=== PATIENT | female | born 1990 | race Caucasian/White ===

== ENCOUNTER 2017-06-12 01:03 | Emergency (ER) | payer SELFPAY ==
--- NOTE | 2017-06-12 01:20 | EDM.PDOC ---
ED HPI GENERAL MEDICAL PROBLEM - General Stated Complaint: FEVER Time Seen by Provider: 06/12/17 01:12 - History of Present Illness INITIAL COMMENTS - FREE TEXT/NARRATIVE: HISTORY AND PHYSICAL: History of present illness: Patient's a 26-year-old female presents with a concern of fever and sore throat has been no vomiting diarrhea or other complaints Review of systems: As per history of present illness and below otherwise all systems reviewed and negative. Past medical history: As per history of present illness and as reviewed below otherwise noncontributory. Surgical history: As per history of present illness and as reviewed below otherwise noncontributory. Social history: No reported history of drug or alcohol abuse. Family history: As per history of present illness and as reviewed below otherwise noncontributory. Physical exam: HEENT: Atraumatic, normocephalic, pupils reactive, negative for conjunctival pallor or scleral icterus, mucous membranes moist, throat 2+ tonsils and pustular exudates no peritonsillar fullness uvular deviation potato voice or trismus, neck supple, nontender, trachea midline. Lungs: Clear to auscultation, breath sounds equal bilaterally, chest nontender. Heart: S1S2, regular, negative for clicks, rubs, or JVD. Abdomen: Soft, nondistended, nontender. Negative for masses or hepatosplenomegaly. Negative for costovertebral tenderness. Pelvis: Stable nontender. Genitourinary: Deferred. Rectal: Deferred. Extremities: Atraumatic, negative for cords or calf pain. Neurovascular unremarkable. Neuro: Awake, alert, oriented. Cranial nerves II through XII unremarkable. Cerebellum unremarkable. Motor and sensory unremarkable throughout. Exam nonfocal. Diagnostics: Deferred Therapeutics: Motrin 400 mg by mouth Impression: 1 exudative pharyngitis Definitive disposition and diagnosis as appropriate pending reevaluation and review of above. - Related Data Allergies Allergy/AdvReac Type Severity Reaction Status Date / Time cephalexin monohydrate Allergy Intermediate throat Verified 02/08/14 19:44 [From Keflex] swelling Home Meds: Home Meds Pnv62/Fa/Om3/DHA/EPA/Fish Oil [[facility] Gummy Vitamins] 2 DAILY 10/04/13 [ History] Amoxicillin 500 mg PO BID #20 capsule 07/29/16 [Rx] Past Medical History - Past Health History Medical/Surgical History: Denies Medical/Surgical History Social & Family History - Tobacco Use Smoking Status *Q: Current Some Day Smoker Years of Tobacco use: 3 Packs/Tins Daily: 0.1 Second Hand Smoke Exposure: No - Alcohol Use Days Per Week of Alcohol Use: 0 - Recreational Drug Use Recreational Drug Use: No ED ROS GENERAL - Review of Systems Review Of Systems: ROS reveals no pertinent complaints other than HPI. ED EXAM, GENERAL - Physical Exam Exam: See Below (See dictation) Departure - Departure Time of Disposition: :19 Disposition: Home, Self-Care 01 Condition: Good Clinical Impression: Exudative pharyngitis - Discharge Information Referrals: Franco Wilson MD [Primary Care Provider] - Additional Instructions: The following information is given to patients seen in the emergency department who are being discharged to home. This information is to outline your options for follow-up care. We provide all patients seen in our emergency department with a follow-up referral. The need for follow-up, as well as the timing and circumstances, are variable depending upon the specifics of your emergency department visit. If you don't have a primary care physician on staff, we will provide you with a referral. We always advise you to contact your personal physician following an emergency department visit to inform them of the circumstance of the visit and for follow-up with them and/or the need for any referrals to a consulting specialist. The emergency department will also refer you to a specialist when appropriate. This referral assures that you have the opportunity for followup care with a specialist. All of these measure are taken in an effort to provide you with optimal care, which includes your followup. Under all circumstances we always encourage you to contact your private physician who remains a resource for coordinating your care. When calling for followup care, please make the office aware that this follow-up is from your recent emergency room visit. If for any reason you are refused follow-up, please contact the [facility] emergency department at and asked to speak to the emergency department charge nurse. Augmentin is prescribed Motrin/Tylenol as directed follow-up primary medical doctor 1-2 days return as needed as discussed]
[2017-06-12] MEDS ORDERED: Ibuprofen 400 MG Tab PO ONE (02:15)
[2017-06-12 02:37] VITALS: BP 109/69
== END 2017-06-12 02:30 | disposition home or self-care (01) ==
LOC: MW.ED 01:03
DX: J02.9 Acute pharyngitis, unspecified (principal); F17.210 Nicotine dependence, cigarettes, uncomplicated; Z88.1 Allergy status to other antibiotic agents
CPT/HCPCS: 99283; A9270; 99282

== ENCOUNTER 2017-09-22 19:46 | Emergency (ER) | payer MEDICAID ==
--- NOTE | 2017-09-22 20:05 | EDM.PDOC ---
ED HPI GENERAL MEDICAL PROBLEM - General Chief Complaint: Respiratory Problem Stated Complaint: COUGH/CONGESTION Time Seen by Provider: 09/22/17 19:52 - History of Present Illness INITIAL COMMENTS - FREE TEXT/NARRATIVE: HISTORY AND PHYSICAL: History of present illness: The patient is a healthy 26-year-old female who is a history of tobacco use but has not smoked for the last week and presents with a hacking cough nonproductive of phlegm for the last 1-1/2 weeks body aches malaise but no fevers runny nose abdominal pain or vomiting. 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 The patient did not get her flu shot this year Review of systems: As per history of present illness and below otherwise all systems reviewed and negative. Past medical history: As per history of present illness and as reviewed below otherwise noncontributory. Surgical history: As per history of present illness and as reviewed below otherwise noncontributory. Social history: No reported history of drug or alcohol abuse. Family history: As per history of present illness and as reviewed below otherwise noncontributory. Physical exam: General: Well-developed well-nourished female who speaks clearly in the ED without hoarse or muffled voice and is not breathless. Vital signs have been reviewed by me HEENT: Atraumatic, normocephalic, pupils reactive, negative for conjunctival pallor or scleral icterus, mucous membranes moist, throat clear, neck supple, nontender, trachea midline. Lungs: Clear to auscultation, breath sounds equal bilaterally, chest nontender. No work of breathing wheezing or stridor Heart: S1S2, regular, rate and rhythm no overt murmurs Abdomen: Soft, nondistended, nontender. NABS Pelvis: Deferred Genitourinary: Deferred. Rectal: Deferred. Extremities: Atraumatic, full range of motion without deficits. Neurovascular unremarkable. Neuro: Awake, alert, oriented. Cranial nerves II through XII unremarkable. Cerebellum unremarkable. Motor and sensory unremarkable throughout. Exam nonfocal. Diagnostics: RSV influenza Therapeutics: Spacer Impression: URI/viral bronchitis Definitive disposition and diagnosis as appropriate pending reevaluation and review of above. back area Pain Score (Numeric/FACES): 4 - Related Data Allergies Allergy/AdvReac Type Severity Reaction Status Date / Time cephalexin monohydrate Allergy Intermediate throat Verified 09/22/17 20:12 [From Keflex] swelling Home Meds: Home Meds . 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 ED EXAM, GENERAL - Physical Exam Exam: See Below (See dictation) Course - Vital Signs Last Recorded V/S: Last Vital Signs Temp 36.8 C 09/22/17 20:05 Pulse 87 09/22/17 20:05 Resp 18 09/22/17 20:05 BP 119/72 09/22/17 20:05 Pulse Ox 98 09/22/17 20:05 - Orders/Labs/Meds Orders: Active Orders 24 hr Category Date Time Status INFLUENZA A+B AG SCREEN [RM] Stat Lab 09/22/17 20:34 Ordered RESPIRATORY SYNCYTIAL VIRUS AG [RM] Stat Lab 09/22/17 20:34 Ordered Departure - Departure Time of Disposition: 21:07 Disposition: Home, Self-Care 01 Condition: Good Clinical Impression: Bronchitis - Discharge Information Referrals: PCP,None [Primary Care Provider] - Forms: ED Department Discharge Additional Instructions: The following information is given to patients seen in the emergency department who are being discharged to home. This information is to outline your options for follow-up care. We provide all patients seen in our emergency department with a follow-up referral. The need for follow-up, as well as the timing and circumstances, are variable depending upon the specifics of your emergency department visit. If you don't have a primary care physician on staff, we will provide you with a referral. We always advise you to contact your personal physician following an emergency department visit to inform them of the circumstance of the visit and for follow-up with them and/or the need for any referrals to a consulting specialist. The emergency department will also refer you to a specialist when appropriate. This referral assures that you have the opportunity for followup care with a specialist. All of these measure are taken in an effort to provide you with optimal care, which includes your followup. Under all circumstances we always encourage you to contact your private physician who remains a resource for coordinating your care. When calling for followup care, please make the office aware that this follow-up is from your recent emergency room visit. If for any reason you are refused follow-up, please contact the [facility] emergency department at and ask to speak to the emergency department charge nurse. [facility] Primary care- Internal Medicine and Family [address] [address] Please try to continue to reduce and eliminate smoking. Push hydration and use [id number] meds as you choose. Please use the albuterol with a spacer you have been given as needed for shortness of breath or coughing. These also take the prednisone for the next 5 days. Please call and schedule a follow-up appointment in the clinic and return to ER as needed and as discussed - My Orders Last 24 Hours: My Active Orders 09/22/17 20:34 INFLUENZA A+B AG SCREEN [RM] Stat RESPIRATORY SYNCYTIAL VIRUS AG [RM] Stat - Assessment/Plan Last 24 Hours: My Active Orders 09/22/17 20:34 INFLUENZA A+B AG SCREEN [RM] Stat RESPIRATORY SYNCYTIAL VIRUS AG [RM] Stat
[2017-09-23 04:26] VITALS: BP 117/68
== END 2017-09-22 21:24 | disposition home or self-care (01) ==
LOC: MW.ED 19:46
DX: J20.8 Acute bronchitis due to other specified organisms (principal); B97.89 Other viral agents as the cause of diseases classified elsewhere; J06.9 Acute upper respiratory infection, unspecified; Z88.1 Allergy status to other antibiotic agents
CPT/HCPCS: 87804; 87807; 99283

== ENCOUNTER 2018-02-10 12:59 | Emergency (ER) | payer MEDICAID ==
[2018-02-10] MEDS ORDERED: Sodium Chloride 0.9% 10 ML Syringe FLUSH PRN (13:34)
[2018-02-10] MEDS ORDERED: Ondansetron 4 MG/2 ML SDV IVPUSH ONE (13:34)
[2018-02-10] MEDS ORDERED: Sodium Chloride 0.9% 2.5 ML Syringe FLUSH PRN (13:34)
[2018-02-10] MEDS ORDERED: Sodium Chloride 0.9% 1,000 ML IV ONE (13:34)
[2018-02-10] MEDS ORDERED: Famotidine 20 MG/2 ML SDV IVPUSH ONE (13:39)
--- NOTE | 2018-02-10 13:39 | EDM.PDOC ---
ED HPI GENERAL MEDICAL PROBLEM - General Chief Complaint: General Stated Complaint: NOT ABLE TO KEEP THINGS DOWN Time Seen by Provider: 02/10/18 13:23 - History of Present Illness INITIAL COMMENTS - FREE TEXT/NARRATIVE: HISTORY AND PHYSICAL: History of present illness: The patient is a 27-year-old female who is a 4 para 3 who is currently 12 weeks and has had nausea and vomiting throughout the entire and presents with same. She is currently following with our nurse family law paralegal and says that during the course of this she had 2-3 prior ER visits in [place] for nausea and vomiting the last time approximately a month ago. She has been using Zofran orally as well as promethazine saying that is not working. She is also concerned that she has a UTI as she has had frequency and urgency with urination but no bleeding in the urine and no flank pain. She has no surgical history and has had no diarrhea. She says that she is thirsty but she can't keep anything down and the meds are not working. She says she has tried to contact the office for advice. The patient had an in office ultrasound with Starr which documented an IUP and she had a serum quantitative hCG on December 30 here at 52,127. The patient says that she is not having any vaginal bleeding and has had some intermittent cramping which is very dull and not severe and is mostly associated with the nausea and vomiting. Review of systems: As per history of present illness and below otherwise all systems reviewed and negative. Past medical history: As per history of present illness and as reviewed below otherwise noncontributory. Surgical history: As per history of present illness and as reviewed below otherwise noncontributory. Social history: No reported history of drug or alcohol abuse. Family history: As per history of present illness and as reviewed below otherwise noncontributory. Physical exam: General: Well-developed well-nourished female who is nontoxic and vital signs have been reviewed by me HEENT: Atraumatic, normocephalic, negative for conjunctival pallor or scleral icterus, mucous membranes tacky, throat clear, neck supple, nontender, trachea midline. Lungs: Clear to auscultation, breath sounds equal bilaterally, chest nontender. Heart: S1S2, regular rate and rhythm no overt murmurs Abdomen: Soft, nondistended, nontender. NABS Negative for costovertebral tenderness. Pelvis: Deferred Genitourinary: Deferred. Rectal: Deferred. Extremities: Atraumatic full range of motion without defects or deficits Neurovascular unremarkable. Neuro: Awake, alert, oriented. Cranial nerves II through XII unremarkable. Cerebellum unremarkable. Motor and sensory unremarkable throughout. Exam nonfocal. Diagnostics: CBC CMP UA urine culture if indicated serum hCG Therapeutics: IV fluids Zofran Pepcid Patient is feeling much improved and has not had any vomiting and is currently trying to take a popsicle. She says she does have the promethazine and Zofran by mouth and I have offered her suppository of Phenergan as this may help her. I will discuss this case with Starr Bowens and plan for disposition home with follow-up with her. She agrees with Phenergan suppositories and use of her oral medications and follow-up. Impression: Hyperemesis in second trimester Definitive disposition and diagnosis as appropriate pending reevaluation and review of above. Abdominal Pain Score (Numeric/FACES): 2 - Related Data Allergies Allergy/AdvReac Type Severity Reaction Status Date / Time cephalexin monohydrate Allergy Intermediate throat Verified 02/10/18 13:21 [From Keflex] swelling Home Meds: Home Meds . 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 History: Tubal Ligation Musculoskeletal History: Reports: None Neurological History: Reports: None Psychiatric History: Reports: None Endocrine/Metabolic History: Reports: None Hematologic History: Reports: None Oncologic (Cancer) History: Reports: None Dermatologic History: Reports: None - Infectious Disease History Infectious Disease History: Reports: Chicken Pox - Past Surgical History Female Surgical History: Reports: Tubal Ligation Social & Family History - Family History Family Medical History: Noncontributory - Tobacco Use Smoking Status *Q: Never Smoker - Caffeine Use Caffeine Use: Reports: None - Recreational Drug Use Recreational Drug Use: No ED ROS GENERAL - Review of Systems Review Of Systems: ROS reveals no pertinent complaints other than HPI. ED EXAM, GENERAL - Physical Exam Exam: See Below (See dictation) Course - Vital Signs Last Recorded V/S: Last Vital Signs Temp 36.2 C 02/10/18 13:24 Pulse 73 02/10/18 13:24 Resp 15 02/10/18 13:24 BP 111/74 02/10/18 13:24 Pulse Ox 99 02/10/18 13:24 - Orders/Labs/Meds Orders: Active Orders 24 hr Category Date Time Status UA W/MICROSCOPIC [URIN] Stat Lab 02/10/18 13:45 Ordered Sodium Chloride 0.9% [Saline Flush] Med 02/10/18 13:34 Active 10 ml FLUSH ASDIRECTED PRN Sodium Chloride 0.9% [Saline Flush] Med 02/10/18 13:34 Active 2.5 ml FLUSH ASDIRECTED PRN Saline Lock Insert [OM.PC] Stat Oth 02/10/18 13:34 Ordered Medication Orders Sodium Chloride (Saline Flush) 10 ml FLUSH ASDIRECTED PRN PRN Reason: Keep Vein Open Last Admin: 02/10/18 13:59 Dose: 10 ml Sodium Chloride (Saline Flush) 2.5 ml FLUSH ASDIRECTED PRN PRN Reason: Keep Vein Open Last Admin: 02/10/18 13:59 Dose: 2.5 ml Labs: Laboratory Tests 02/10/18 02/10/18 02/10/18 Range/Units 13:45 13:45 13:45 WBC 7.78 (4.0-11.0) K/uL RBC 4.20 L (4.30-5.90) M/uL Hgb 12.7 (12.0-16.0) g/dL Hct 38.2 (36.0-46.0) % MCV 91.0 (80.0-98.0) fL MCH 30.2 (27.0-32.0) pg MCHC 33.2 (31.0-37.0) g/dL RDW Std Deviation 42.2 (28.0-62.0) fl RDW Coeff of Lorri 13 (11.0-15.0) % Plt Count 232 (150-400) K/uL MPV 10.30 (7.40-12.00) fL Neut % (Auto) 67.5 (48.0-80.0) % Lymph % (Auto) 25.4 (16.0-40.0) % [place] % (Auto) 6.3 (0.0-15.0) % Eos % (Auto) 0.4 (0.0-7.0) % Baso % (Auto) 0.4 (0.0-1.5) % Neut # (Auto) 5.3 (1.4-5.7) K/uL Lymph # (Auto) 2.0 (0.6-2.4) K/uL [place] # (Auto) 0.5 (0.0-0.8) K/uL Eos # (Auto) 0.0 (0.0-0.7) K/uL Baso # (Auto) 0.0 (0.0-0.1) K/uL Nucleated RBC % 0.0 /100WBC Nucleated RBCs # 0 K/uL Sodium 136 (136-145) mmol/L Potassium 3.6 (3.5-5.1) mmol/L Chloride 103 (98-107) mmol/L Carbon Dioxide 26.1 (21.0-32.0) mmol/L BUN 11 (7.0-18.0) mg/dL Creatinine 0.8 (0.6-1.0) mg/dL Est Cr Clr Drug Dosing 75.87 mL/min Estimated GFR (MDRD) > 60.0 ml/min Glucose 75 (74-106) mg/dL Calcium 9.1 (8.5-10.1) mg/dL Total Bilirubin 0.4 (0.2-1.0) mg/dL AST 12 L (15-37) IU/L ALT 11 L (14-63) IU/L Alkaline Phosphatase 61 (46-116) U/L Total Protein 7.3 (6.4-8.2) g/dL Albumin 3.5 (3.4-5.0) g/dL Globulin 3.8 H (2.0-3.5) g/dL Albumin/Globulin Ratio 0.9 L (1.3-2.8) HCG, Quant 28870.0 mIU/mL Urine Color YELLOW Urine Appearance CLEAR Urine pH 6.0 (5.0-8.0) Ur Specific [place] 1.025 (1.001-1.035) Urine Protein NEGATIVE (NEGATIVE) mg/dL Urine Glucose (UA) NEGATIVE (NEGATIVE) mg/dL Urine Ketones 15 H (NEGATIVE) mg/dL Urine Occult Blood NEGATIVE (NEGATIVE) Urine Nitrite NEGATIVE (NEGATIVE) Urine Bilirubin NEGATIVE (NEGATIVE) Urine Urobilinogen 1.0 (<2.0) EU/dL Ur Leukocyte Esterase NEGATIVE (NEGATIVE) Urine RBC 0-1 (0-2/HPF) Urine WBC 0-1 (0-5/HPF) Ur Epithelial Cells MODERATE (NONE-FEW) Urine Bacteria RARE (NEGATIVE) Meds: Medications Generic Name Dose Route Start Last Admin Trade Name Freq PRN Reason Stop Dose Admin Sodium Chloride 10 ml 02/10/18 13:34 02/10/18 13:59 Saline Flush FLUSH 10 ml ASDIRECTED PRN Administration Keep Vein Open Sodium Chloride 2.5 ml 02/10/18 13:34 02/10/18 13:59 Saline Flush FLUSH 2.5 ml ASDIRECTED PRN Administration Keep Vein Open Discontinued Medications Generic Name Dose Route Start Last Admin Trade Name Freq PRN Reason Stop Dose Admin Famotidine 20 mg 02/10/18 13:39 02/10/18 13:58 Pepcid IVPUSH 02/10/18 13:40 20 mg ONETIME ONE Administration Sodium Chloride 1,000 mls @ 999 mls/hr 02/10/18 13:34 02/10/18 13:51 Normal Saline IV 02/10/18 14:34 999 mls/hr STAT ONE Administration Ondansetron HCl 4 mg 02/10/18 13:34 02/10/18 13:59 Zofran IVPUSH 02/10/18 13:35 4 mg ONETIME ONE Administration Departure - Departure Time of Disposition: 14:58 Disposition: Home, Self-Care 01 Condition: Good Clinical Impression: Hyperemesis affecting , antepartum - Discharge Information Referrals: PCP,None [Primary Care Provider] - Forms: ED Department Discharge Additional Instructions: The following information is given to patients seen in the emergency department who are being discharged to home. This information is to outline your options for follow-up care. We provide all patients seen in our emergency department with a follow-up referral. The need for follow-up, as well as the timing and circumstances, are variable depending upon the specifics of your emergency department visit. If you don't have a primary care physician on staff, we will provide you with a referral. We always advise you to contact your personal physician following an emergency department visit to inform them of the circumstance of the visit and for follow-up with them and/or the need for any referrals to a consulting specialist. The emergency department will also refer you to a specialist when appropriate. This referral assures that you have the opportunity for followup care with a specialist. All of these measure are taken in an effort to provide you with optimal care, which includes your followup. Under all circumstances we always encourage you to contact your private physician who remains a resource for coordinating your care. When calling for followup care, please make the office aware that this follow-up is from your recent emergency room visit. If for any reason you are refused follow-up, please contact the [facility] emergency department at and ask to speak to the emergency department charge nurse. [facility] Primary care-Women's Health [address] [address] These contact the clinic and get a scheduled follow-up appointment with Starr Bowens as we discussed. Use medication that you have at home or the new prescription you have been given for vomiting. Try to eat ice chips take small sips of clear liquids and eat small bites of bland foods such as crackers every 5-10 minutes. Return to ER as needed and as discussed - My Orders Last 24 Hours: My Active Orders 02/10/18 13:34 Sodium Chloride 0.9% [Saline Flush] 10 ml FLUSH ASDIRECTED PRN Sodium Chloride 0.9% [Saline Flush] 2.5 ml FLUSH ASDIRECTED PRN Saline Lock Insert [OM.PC] Stat 02/10/18 13:45 UA W/MICROSCOPIC [URIN] Stat - Assessment/Plan Last 24 Hours: My Active Orders 02/10/18 13:34 Sodium Chloride 0.9% [Saline Flush] 10 ml FLUSH ASDIRECTED PRN Sodium Chloride 0.9% [Saline Flush] 2.5 ml FLUSH ASDIRECTED PRN Saline Lock Insert [OM.PC] Stat 02/10/18 13:45 UA W/MICROSCOPIC [URIN] Stat
[2018-02-10 14:45] LABS: CHLORIDE,CL 103 mmol/L (98-107); SODIUM,NA 136 mmol/L (136-145)
[2018-02-10 16:20] VITALS: BP 108/62
== END 2018-02-10 16:00 | disposition home or self-care (01) ==
LOC: MW.ED 12:59
DX: O21.0 Mild hyperemesis gravidarum (principal); Z3A.12 12 weeks gestation of pregnancy; Z88.1 Allergy status to other antibiotic agents
CPT/HCPCS: 36415; 80053; 81001; 84702; 85025; 96361; 96374; 96375; 99284; J2405; J3490; J7040; 99283

== ENCOUNTER 2018-03-16 08:54 | Emergency (ER) | payer MEDICAID ==
[2018-03-16 09:07] VITALS: BP 102/62
[2018-03-16] MEDS ORDERED: Ondansetron 4 MG/2 ML SDV IVPUSH ONE (09:59)
[2018-03-16] MEDS ORDERED: Sodium Chloride 0.9% 1,000 ML IV ONE (09:59)
--- NOTE | 2018-03-16 10:06 | EDM.PDOC ---
ED HPI GENERAL MEDICAL PROBLEM - General Chief Complaint: Gastrointestinal Problem Stated Complaint: 17 WKS AND KEEPS VOMITTING Time Seen by Provider: 03/16/18 09:52 - History of Present Illness INITIAL COMMENTS - FREE TEXT/NARRATIVE: HISTORY AND PHYSICAL: History of present illness: The patient is a 27-year-old female G4, P3, who is 17 weeks who presents to the ER with nausea, vomiting. She has not been able to hold anything down since 9:00 pm last night. She reports she is vomiting every 20-30 minutes. At this point, she reports she's dry heaving. She doesn't have anything in her stomach. She tried promethazine and Zofran orally at home but wasn't able to keep those down. She reported a fever of 101 last night. She was in the ER about a month ago for similar complaints. She denies any abdominal pain, chest pain, shortness of breath, burning with urination, vaginal discharge or bleeding. [] Review of systems: As per history of present illness and below otherwise all systems reviewed and negative. Past medical history: As per history of present illness and as reviewed below otherwise noncontributory. Surgical history: As per history of present illness and as reviewed below otherwise noncontributory. Social history: No reported history of drug or alcohol abuse. Family history: As per history of present illness and as reviewed below otherwise noncontributory. Physical exam: HEENT: Atraumatic, normocephalic, pupils reactive, negative for conjunctival pallor or scleral icterus, mucous membranes moist, throat clear, neck supple, nontender, trachea midline. Lungs: Clear to auscultation, breath sounds equal bilaterally, chest nontender. Heart: S1S2, regular, negative for clicks, rubs, or JVD. Abdomen: Soft, nondistended, nontender. Negative for masses or hepatosplenomegaly. Negative for costovertebral tenderness. gravid uterus palpated below umbilicus, nontender Pelvis: Stable nontender. Genitourinary: Deferred. Rectal: Deferred. Extremities: Atraumatic, negative for cords or calf pain. Neurovascular unremarkable. Neuro: Awake, alert, oriented. Cranial nerves II through XII unremarkable. Cerebellum unremarkable. Motor and sensory unremarkable throughout. Exam nonfocal. Diagnostics: [CBC, CMP, UA, UC, heart tones] Therapeutics: [IV fluids- NS, Zofran IV] Impression: [hyperemesis in ] Plan: [Patient improved with IV Zofran and IV fluids. heart tones were recorded at 140s to 150s. Patient showed signs of UTI on UA. Urine culture pending. Patient will be sent home with Macrobid for the UTI. Will also send the patient home with Zofran ODT.] - Related Data Allergies Allergy/AdvReac Type Severity Reaction Status Date / Time cephalexin monohydrate Allergy Intermediate throat Verified 03/16/18 09:07 [From Keflex] swelling Home Meds: Home Meds Ondansetron HCl 4 mg PO DAILY PRN 02/10/18 [History] Promethazine [Phenergan] 25 mg PO DAILY PRN 02/10/18 [History] Nitrofurantoin Monohyd/M-Cryst [Macrobid 100 mg Capsule] 100 mg PO BID 5 Days # 10 capsule 03/16/18 [Rx] Ondansetron [Zofran ODT] 4 mg PO Q6H PRN 3 Days #10 tab.dis 03/16/18 [Rx] Past Medical History - Past Health History Medical/Surgical History: Denies Medical/Surgical History HEENT History: Reports: None Cardiovascular History: Reports: None Respiratory History: Reports: None Gastrointestinal History: Reports: None Genitourinary History: Reports: None 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 (See Below) Other 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 History: Tubal Ligation Musculoskeletal History: Reports: None Neurological History: Reports: None Psychiatric History: Reports: None Endocrine/Metabolic History: Reports: None Hematologic History: Reports: None Oncologic (Cancer) History: Reports: None Dermatologic History: Reports: None - Infectious Disease History Infectious Disease History: Reports: Chicken Pox - Past Surgical History Female Surgical History: Reports: Tubal Ligation Other Female Surgeries/Procedures: states had tubal ligation reversed Social & Family History - Family History Family Medical History: Noncontributory - Tobacco Use Smoking Status *Q: Never Smoker Second Hand Smoke Exposure: No - Caffeine Use Caffeine Use: Reports: Soda - Recreational Drug Use Recreational Drug Use: No ED ROS GENERAL - Review of Systems Review Of Systems: See Below (See dictation) ED EXAM, GI/ABD - Physical Exam Exam: See Below (See dictation) Course - Vital Signs Last Recorded V/S: Last Vital Signs Temp 96.3 F 03/16/18 09:04 Pulse 91 03/16/18 09:04 Resp 16 03/16/18 09:04 BP 102/62 03/16/18 09:04 Pulse Ox 98 03/16/18 09:04 - Orders/Labs/Meds Orders: Active Orders 24 hr Category Date Time Status Heart Tones [RC] ASDIRECTED Care 03/16/18 09:59 Active CULTURE URINE [RM] Stat Lab 03/16/18 10:07 Received Labs: Laboratory Tests 03/16/18 03/16/18 03/16/18 Range/Units 10:07 10:25 10:25 WBC 9.36 (4.0-11.0) K/uL RBC 3.89 L (4.30-5.90) M/uL Hgb 12.1 (12.0-16.0) g/dL Hct 35.1 L (36.0-46.0) % MCV 90.2 (80.0-98.0) fL MCH 31.1 (27.0-32.0) pg MCHC 34.5 (31.0-37.0) g/dL RDW Std Deviation 41.6 (28.0-62.0) fl RDW Coeff of Lorri 13 (11.0-15.0) % Plt Count 226 (150-400) K/uL MPV 10.10 (7.40-12.00) fL Neut % (Auto) 76.7 (48.0-80.0) % Lymph % (Auto) 17.4 (16.0-40.0) % [place] % (Auto) 5.4 (0.0-15.0) % Eos % (Auto) 0.2 (0.0-7.0) % Baso % (Auto) 0.3 (0.0-1.5) % Neut # (Auto) 7.2 H (1.4-5.7) K/uL Lymph # (Auto) 1.6 (0.6-2.4) K/uL [place] # (Auto) 0.5 (0.0-0.8) K/uL Eos # (Auto) 0.0 (0.0-0.7) K/uL Baso # (Auto) 0.0 (0.0-0.1) K/uL Nucleated RBC % 0.0 /100WBC Nucleated RBCs # 0 K/uL Sodium 139 (136-145) mmol/L Potassium 3.7 (3.5-5.1) mmol/L Chloride 105 (98-107) mmol/L Carbon Dioxide 24.2 (21.0-32.0) mmol/L BUN 6 L (7.0-18.0) mg/dL Creatinine 0.6 (0.6-1.0) mg/dL Est Cr Clr Drug Dosing 101.16 mL/min Estimated GFR (MDRD) > 60.0 ml/min Glucose 82 (74-106) mg/dL Calcium 8.9 (8.5-10.1) mg/dL Total Bilirubin 0.4 (0.2-1.0) mg/dL AST 12 L (15-37) IU/L ALT 7 L (14-63) IU/L Alkaline Phosphatase 70 (46-116) U/L Total Protein 6.9 (6.4-8.2) g/dL Albumin 3.2 L (3.4-5.0) g/dL Globulin 3.7 H (2.0-3.5) g/dL Albumin/Globulin Ratio 0.9 L (1.3-2.8) Urine Color YELLOW Urine Appearance SLT CLOUDY Urine pH 8.5 H (5.0-8.0) Ur Specific [place] 1.015 (1.001-1.035) Urine Protein NEGATIVE (NEGATIVE) mg/dL Urine Glucose (UA) NEGATIVE (NEGATIVE) mg/dL Urine Ketones 40 H (NEGATIVE) mg/dL Urine Occult Blood NEGATIVE (NEGATIVE) Urine Nitrite NEGATIVE (NEGATIVE) Urine Bilirubin NEGATIVE (NEGATIVE) Urine Urobilinogen 0.2 (<2.0) EU/dL Ur Leukocyte Esterase NEGATIVE (NEGATIVE) Urine RBC 0-1 (0-2/HPF) Urine WBC 0-1 (0-5/HPF) Ur Epithelial Cells OCCASIONAL (NONE-FEW) Amorphous Sediment MODERATE (NEGATIVE) Urine Bacteria 1+ H (NEGATIVE) Meds: Medications Discontinued Medications Generic Name Dose Route Start Last Admin Trade Name Freq PRN Reason Stop Dose Admin Sodium Chloride 1,000 mls @ 999 mls/hr 03/16/18 09:59 03/16/18 10:13 Normal Saline IV 03/16/18 10:59 999 mls/hr STAT ONE Administration Ondansetron HCl 4 mg 03/16/18 09:59 03/16/18 10:13 Zofran IVPUSH 03/16/18 10:00 4 mg ONETIME ONE Administration Departure - Departure Time of Disposition: 11:00 Disposition: Home, Self-Care 01 Condition: Good Clinical Impression: UTI, Urinary tract infectious disease, Hyperemesis affecting , antepartum - Discharge Information *PRESCRIPTION DRUG MONITORING PROGRAM REVIEWED*: No *COPY OF PRESCRIPTION DRUG MONITORING REPORT IN PATIENT IRENE: No Prescriptions: Nitrofurantoin Monohyd/M-Cryst [Macrobid 100 mg Capsule] 100 mg PO BID 5 Days # 10 capsule Ondansetron [Zofran ODT] 4 mg PO Q6H PRN 3 Days #10 tab.dis PRN Reason: Nausea/Vomiting Instructions: Eating Plan for Hyperemesis Gravidarum, Urinary Tract Infection, Adult Referrals: PCP,None [Primary Care Provider] - Forms: ED Department Discharge Additional Instructions: My general discharge The following information is given to patients seen in the emergency department who are being discharged to home. This information is to outline your options for follow-up care. We provide all patients seen in our emergency department with a follow-up referral. The need for follow-up, as well as the timing and circumstances, are variable depending upon the specifics of your emergency department visit. If you don't have a primary care physician on staff, we will provide you with a referral. We always advise you to contact your personal physician following an emergency department visit to inform them of the circumstance of the visit and for follow-up with them and/or the need for any referrals to a consulting specialist. The emergency department will also refer you to a specialist when appropriate. This referral assures that you have the opportunity for follow-up care with a specialist. All of these measure are taken in an effort to provide you with optimal care, which includes your follow-up. Under all circumstances we always encourage you to contact your private physician who remains a resource for coordinating your care. When calling for follow-up care, please make the office aware that this follow-up is from your recent emergency room visit. If for any reason you are refused follow-up, please contact the [facility] Emergency Department at and asked to speak to the emergency department charge nurse. My [facility] - [facility] [address] [place] [id number] - My Orders Last 24 Hours: My Active Orders 03/16/18 09:59 Heart Tones [RC] ASDIRECTED 03/16/18 10:07 CULTURE URINE [RM] Stat - Assessment/Plan Last 24 Hours: My Active Orders 03/16/18 09:59 Heart Tones [RC] ASDIRECTED 03/16/18 10:07 CULTURE URINE [RM] Stat
[2018-03-16 10:50] LABS: CHLORIDE,CL 105 mmol/L (98-107); SODIUM,NA 139 mmol/L (136-145)
== END 2018-03-16 11:20 | disposition home or self-care (01) ==
LOC: MW.ED 08:54
DX: O23.42 Unspecified infection of urinary tract in pregnancy, second trimester (principal); O21.9 Vomiting of pregnancy, unspecified; Z88.1 Allergy status to other antibiotic agents; Z3A.17 17 weeks gestation of pregnancy
CPT/HCPCS: 36415; 80053; 81001; 85025; 87086; 96361; 96374; 99284; J2405; J7040

== ENCOUNTER 2018-08-07 19:49 | Inpatient (IN) | payer MEDICAID ==
[2018-08-07] MEDS ORDERED: Carboprost Tromethamine 250 MCG/1 ML Amp IM PRN (22:12)
[2018-08-07] MEDS ORDERED: Misoprostol 200 MCG Tab PO PRN (22:12)
[2018-08-07] MEDS ORDERED: Butorphanol 1 MG/ML SDV IVPUSH PRN (22:12)
[2018-08-07] MEDS ORDERED: Tranexamic Acid 1,000 MG in Sodium Chloride 0.9% 100 ML IV PRN (22:12)
[2018-08-07] MEDS ORDERED: Lidocaine 1% 50 ML MDV INJECT PRN (22:12)
[2018-08-07] MEDS ORDERED: Methylergonovine 0.2 MG/1 ML Amp IM PRN (22:12)
[2018-08-07] MEDS ORDERED: Nalbuphine 10 MG/1 ML Vial IVPUSH PRN (22:12)
[2018-08-07] MEDS ORDERED: Sodium Chloride 0.9% 2.5 ML Syringe FLUSH PRN (22:12)
[2018-08-07] MEDS ORDERED: Water For Irrigation,Sterile 1,000 ML Container IRR PRN (22:12)
[2018-08-07] MEDS ORDERED: Sodium Chloride 0.9% 10 ML Syringe FLUSH PRN (22:12)
[2018-08-07] MEDS ORDERED: Oxytocin/0.9 % Sodium Chloride 30 UNIT/500 ML BAG IV SCH (22:15)
[2018-08-07] MEDS ORDERED: Lactated Ringers 1,000 ML IV SCH (22:15)
--- NOTE | 2018-08-07 22:37 | PCM.LDHP ---
L&D History of Present Illness - General Date of Service: 08/07/18 Admit Problem/Dx: Patient Status Order with Admit Dx/Problem 08/07/18 20:30 Patient Status [ADT] Routine 08/07/18 22:12 Patient Status [ADT] Routine Admission Diagnosis/Problem Admission Diagnosis/Problem 08/07/18 22:32 27yo EDC 08/23/2018 37 5/7wks, AB +, RI, GBS neg. Labor Source of Information: Patient History Limitations: Reports: No Limitations - History of Present Illness Improves with: Reports: None Worsens with: Reports: None Associated Symptoms: Reports: N - Related Data Allergies/Adverse Reactions: Allergies Allergy/AdvReac Type Severity Reaction Status Date / Time cephalexin monohydrate Allergy Intermediate throat Verified 07/27/18 00:49 [From Keflex] swelling Home Medications: Home Meds . 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 (See Below) Other OB/BYN History: Tubal Ligation Musculoskeletal History: Reports: None Neurological History: Reports: None Psychiatric History: Reports: None Endocrine/Metabolic History: Reports: None Hematologic History: Reports: None Oncologic (Cancer) History: Reports: None Dermatologic History: Reports: None - Infectious Disease History Infectious Disease History: Reports: Chicken Pox - Past Surgical History Female Surgical History: Reports: Tubal Ligation Other Female Surgeries/Procedures: states had tubal ligation reversed Social & Family History - Family History Family Medical History: Noncontributory - Caffeine Use Caffeine Use: Reports: Soda H&P Review of Systems - Review of Systems: Review Of Systems: See Below General: Reports: No Symptoms HEENT: Reports: No Symptoms Pulmonary: Reports: No Symptoms Cardiovascular: Reports: No Symptoms Gastrointestinal: Reports: No Symptoms Genitourinary: Reports: No Symptoms Musculoskeletal: Reports: No Symptoms Skin: Reports: No Symptoms Psychiatric: Reports: No Symptoms Neurological: Reports: No Symptoms Hematologic/Lymphatic: Reports: No Symptoms Immunologic: Reports: No Symptoms L&D Exam - Exam Exam: See Below - OB Specific Contraction Intensity: Moderate to Strong Movement: Active Heart Tones: Present Heart Rate (FHR) Variability: Moderate (6-25 bmp) Presentation: Vertex - Rizo Score Rizo Score Cervix Position: Midposition Rizo Score Consistency: Soft Rizo Score Effacement: >80% Rizo Score Dilation: 3-4 cm Rizo Score 's Station: -2 Rizo Score Total: 9 - Exam General: Alert, Oriented, Cooperative, Mild Distress HEENT: Hearing Intact Lungs: Clear to Auscultation, Normal Respiratory Effort Cardiovascular: Regular Rate, Regular Rhythm, Normal S1, Normal S2 GI/Abdominal Exam: Soft, Non-Tender Rectal Exam: Deferred Genitourinary: Normal external exam, Normal bimanual exam, Cervical dilitation Back Exam: Normal Inspection, Full Range of Motion Extremities: Normal Inspection, Normal Range of Motion, Non-Tender, No Pedal Edema, Normal Capillary Refill Skin: Warm, Dry, Intact Neurological: Cranial Nerves Intact, Reflexes Equal Bilateral, Strength Equal Bilateral, Normal Speech, Normal Tone, Sensation Intact Psychiatric: Alert, Normal Affect, Normal Mood - Problem List (1) Supervision of normal IUP (intrauterine ) in multigravida SNOMED Code(s): 665707174, 620652332, 600220034 ICD Code: Z34.80 - ENCOUNTER FOR SUPRVSN OF NORMAL , UNSP TRIMESTER Status: Acute Priority: High Current Visit: Yes Qualifiers: Trimester: third trimester Qualified Code(s): Z34.83 - Encounter for supervision of other normal , third trimester Problem List Initiated/Reviewed/Updated: Yes Orders Last 24hrs: Active Orders 24 hr Category Date Time Status Patient Status [ADT] Routine ADT 08/07/18 20:30 Active Patient Status [ADT] Routine ADT 08/07/18 22:12 Active Heart Tones [RC] CONTINUOUS Care 08/07/18 22:12 Active Non Stress Test [RC] PER UNIT ROUTINE Care 08/07/18 20:30 Active Non Stress Test [RC] PER UNIT ROUTINE Care 08/07/18 22:12 Active May Shower [RC] ASDIRECTED Care 08/07/18 22:12 Active Notify Provider [RC] PRN Care 08/07/18 22:12 Active Up ad Syke [RC] ASDIRECTED Care 08/07/18 20:30 Active Up ad Skye [RC] ASDIRECTED Care 08/07/18 22:12 Active Vaginal Exam [RC] Click to Edit Care 08/07/18 20:30 Active Vaginal Exam [RC] PRN Care 08/07/18 22:12 Active Vital Signs [RC] PER UNIT ROUTINE Care 08/07/18 20:30 Active Vital Signs [RC] PER UNIT ROUTINE Care 08/07/18 22:12 Active CBC W/O DIFF,HEMOGRAM [HEME] Routine Lab 08/07/18 22:12 Ordered TYPE AND SCREEN [BBK] Routine Lab 08/07/18 22:12 Ordered Butorphanol [Stadol] Med 08/07/18 22:12 Active 1 mg IVPUSH Q1H PRN Carboprost Tromethamine [Hemabate DS] Med 08/07/18 22:12 Active 250 mcg IM ASDIRECTED PRN Lactated Ringers [Ringers, Lactated] 1,000 ml Med 08/07/18 22:15 Active IV ASDIRECTED Lidocaine 1% [Xylocaine 1%] Med 08/07/18 22:12 Active 50 ml INJECT ONETIME PRN Methylergonovine [Methergine] Med 08/07/18 22:12 Active 0.2 mg IM ASDIRECTED PRN Nalbuphine [Nubain] Med 08/07/18 22:12 Active 10 mg IVPUSH Q1H PRN Oxytocin/0.9 % Sodium Chloride [Oxytocin 30 Unit/500 ML Med 08/07/18 22:15 Active -NS] 30 unit in 500 ml IV TITRATE Sodium Chloride 0.9% [Saline Flush] Med 08/07/18 22:12 Active 10 ml FLUSH ASDIRECTED PRN Sodium Chloride 0.9% [Saline Flush] Med 08/07/18 22:12 Active 2.5 ml FLUSH ASDIRECTED PRN Tranexamic Acid [Cyklokapron] 1,000 mg Med 08/07/18 22:12 Active Sodium Chloride 0.9% [Normal Saline] 100 ml IV ONETIME Water For Irrigation,Sterile [Sterile Water for Med 08/07/18 22:12 Active Irrigation] 1,000 ml IRR ASDIRECTED PRN miSOPROStol [Cytotec] Med 08/07/18 22:12 Active 200 mcg PO ONETIME PRN Scalp Electrode [WOMSER] Per Unit Routine Oth 08/07/18 22:12 Ordered Peripheral IV Insertion Adult [OM.PC] Routine Oth 08/07/18 22:12 Ordered Resuscitation Status Routine Resus Stat 08/07/18 20:30 Ordered Medication Orders Butorphanol Tartrate (Stadol) 1 mg IVPUSH Q1H PRN PRN Reason: Pain Carboprost Tromethamine (Hemabate Ds) 250 mcg IM ASDIRECTED PRN PRN Reason: Post Hemorrhage Tranexamic Acid 1,000 mg/ (Sodium Chloride) 110 mls @ 660 mls/hr IV ONETIME PRN PRN Reason: Bleeding Lactated Ringer's (Ringers, Lactated) 1,000 mls @ 150 mls/hr IV ASDIRECTED MONALISA Oxytocin/Sodium Chloride (Oxytocin 30 Unit/500 Ml-Ns) 30 unit in 500 mls @ 555 mls/hr IV TITRATE MONALISA Lidocaine HCl (Xylocaine 1%) 50 ml INJECT ONETIME PRN PRN Reason: Laceration repair Methylergonovine Maleate (Methergine) 0.2 mg IM ASDIRECTED PRN PRN Reason: Post Hemorrhage Misoprostol (Cytotec) 200 mcg PO ONETIME PRN PRN Reason: Post Hemorrhage Nalbuphine HCl (Nubain) 10 mg IVPUSH Q1H PRN PRN Reason: Pain (severe 7-10) Sodium Chloride (Saline Flush) 10 ml FLUSH ASDIRECTED PRN PRN Reason: Keep Vein Open Sodium Chloride (Saline Flush) 2.5 ml FLUSH ASDIRECTED PRN PRN Reason: Keep Vein Open Sterile Water (Sterile Water For Irrigation) 1,000 ml IRR ASDIRECTED PRN PRN Reason: delivery Assessment/Plan Comment:: Labor A: 27yo EDC 08/23/2018 37 5/7wks, AB +, RI, GBS neg. Labor P: Admit, epidural prn, anticipate , Dr Farah updated.
[2018-08-08] MEDS ORDERED: fentaNYL 100 MCG/2 ML SDV ONE (01:34)
[2018-08-08] MEDS ORDERED: Lidocaine HCl/EPINEPHrine 5 ML IJ ONE (01:35)
--- NOTE | 2018-08-08 02:21 | PCM.PREANE ---
Preanesthetic Assessment - Anesthesia/Transfusion/Family Hx Anesthesia History: Prior Anesthesia Without Reaction Family History of Anesthesia Reaction: No Type of Transfusion Reactions: Reports: Unknown - Review of Systems General: No Symptoms Pulmonary: No Symptoms Cardiovascular: No Symptoms Gastrointestinal: No Symptoms Neurological: No Symptoms Other: Reports: None (Denies any personal or family hx of bleeding or clotting problems) - Physical Assessment ASA Class: 2 Mental Status: Alert & Oriented x3 Airway Class: Mallampati = 2 Dentition: Reports: Normal Dentition ROM/Head Extension: Full - Lab Values: Laboratory Last Values WBC 11.66 K/uL (4.0-11.0) H 08/07/18 22:25 RBC 3.49 M/uL (4.30-5.90) L 08/07/18 22:25 Hgb 10.1 g/dL (12.0-16.0) L 08/07/18 22:25 Hct 30.7 % (36.0-46.0) L 08/07/18 22:25 MCV 88.0 fL (80.0-98.0) 08/07/18 22:25 MCH 28.9 pg (27.0-32.0) 08/07/18 22:25 MCHC 32.9 g/dL (31.0-37.0) 08/07/18 22:25 RDW Std Deviation 42.7 fl (28.0-62.0) 08/07/18 22:25 RDW Coeff of Lorri 13 % (11.0-15.0) 08/07/18 22:25 Plt Count 265 K/uL (150-400) 08/07/18 22:25 MPV 10.90 fL (7.40-12.00) 08/07/18 22:25 Nucleated RBC % 0.0 /100WBC 08/07/18 22:25 Nucleated RBCs # 0 K/uL 08/07/18 22:25 Urine Opiates Screen NEGATIVE (NEGATIVE) 08/07/18 22:30 Ur Oxycodone Screen NEGATIVE (NEGATIVE) 08/07/18 22:30 Urine Methadone Screen NEGATIVE (NEGATIVE) 08/07/18 22:30 Ur Barbiturates Screen NEGATIVE (NEGATIVE) 08/07/18 22:30 Ur Phencyclidine Scrn NEGATIVE (NEGATIVE) 08/07/18 22:30 Ur Amphetamine Screen NEGATIVE (NEGATIVE) 08/07/18 22:30 U Methamphetamines Scrn NEGATIVE (NEGATIVE) 08/07/18 22:30 U Benzodiazepines Scrn NEGATIVE (NEGATIVE) 08/07/18 22:30 U Cocaine Metab Screen NEGATIVE (NEGATIVE) 08/07/18 22:30 U Marijuana (THC) Screen NEGATIVE (NEGATIVE) 08/07/18 22:30 Blood Type AB POSITIVE 08/07/18 22:25 Antibody Screen NEGATIVE 08/07/18 22:25 - Allergies Allergies/Adverse Reactions: Allergies Allergy/AdvReac Type Severity Reaction Status Date / Time cephalexin monohydrate Allergy Intermediate throat Verified 07/27/18 00:49 [From Keflex] swelling - Acknowledgements Anesthesia Type Planned: Epidural Pt an Appropriate Candidate for the Planned Anesthesia: Yes Alternatives and Risks of Anesthesia Discussed w Pt/Guardian: Yes Pt/Guardian Understands and Agrees with Anesthesia Plan: Yes PreAnesthesia Questionnaire - Past Health History Medical/Surgical History: Denies Medical/Surgical History HEENT History: Reports: None Cardiovascular History: Reports: None Respiratory History: Reports: None Gastrointestinal History: Reports: None Genitourinary History: Reports: None 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 (See Below) Other OB/BYN History: Tubal Ligation Musculoskeletal History: Reports: None Neurological History: Reports: None Psychiatric History: Reports: None Endocrine/Metabolic History: Reports: None Hematologic History: Reports: None Oncologic (Cancer) History: Reports: None Dermatologic History: Reports: None - Infectious Disease History Infectious Disease History: Reports: Chicken Pox - Past Surgical History Female Surgical History: Reports: Tubal Ligation (also tubal ligation reversal done in [place]) Other Female Surgeries/Procedures: states had tubal ligation reversed - HOME MEDS Home Medications: Home Meds . [No Known Home Meds] 07/27/18 [History] - CURRENT (IN HOUSE) MEDS Current Meds: Current Medications Butorphanol Tartrate (Stadol) 1 mg IVPUSH Q1H PRN PRN Reason: Pain Carboprost Tromethamine (Hemabate Ds) 250 mcg IM ASDIRECTED PRN PRN Reason: Post Hemorrhage Tranexamic Acid 1,000 mg/ (Sodium Chloride) 110 mls @ 660 mls/hr IV ONETIME PRN PRN Reason: Bleeding Lactated Ringer's (Ringers, Lactated) 1,000 mls @ 150 mls/hr IV ASDIRECTED MONALISA Oxytocin/Sodium Chloride (Oxytocin 30 Unit/500 Ml-Ns) 30 unit in 500 mls @ 555 mls/hr IV TITRATE MONALISA Lidocaine HCl (Xylocaine 1%) 50 ml INJECT ONETIME PRN PRN Reason: Laceration repair Methylergonovine Maleate (Methergine) 0.2 mg IM ASDIRECTED PRN PRN Reason: Post Hemorrhage Misoprostol (Cytotec) 200 mcg PO ONETIME PRN PRN Reason: Post Hemorrhage Nalbuphine HCl (Nubain) 10 mg IVPUSH Q1H PRN PRN Reason: Pain (severe 7-10) Sodium Chloride (Saline Flush) 10 ml FLUSH ASDIRECTED PRN PRN Reason: Keep Vein Open Sodium Chloride (Saline Flush) 2.5 ml FLUSH ASDIRECTED PRN PRN Reason: Keep Vein Open Sterile Water (Sterile Water For Irrigation) 1,000 ml IRR ASDIRECTED PRN PRN Reason: delivery Discontinued Medications Fentanyl (Sublimaze) Confirm Administered Dose 100 mcg .ROUTE .STK-MED ONE Stop: 08/08/18 01:35 Fentanyl/Bupivacaine HCl (Dpvkepff-Ngbww-Fl 2 Mcg/Ml-0.125%) Confirm Administered Dose 100 mls @ as directed .ROUTE .STK-MED ONE Stop: 08/08/18 01:35 Lidocaine/Epinephrine (Lidocaine 1.5%-Epi 1:200,000) Confirm Administered Dose 5 ml IJ .STK-MED ONE Stop: 08/08/18 01:36
--- NOTE | 2018-08-08 03:03 | PCM.DEL ---
L & D Note - General Info Date of Service: 08/08/18 Mother's Due Date: 09/02/18 - Delivery Note Labor: Spontaneous Delivery Outcome: Livebirth Infant Delivery Method: Spontaneous Vaginal Delivery-Single Delivery Mode: Spontaneous Presentation: Vertex Nuchal Cord: Present (x3) Anesthesia Type: Epidural Amniotic Fluid Description: Clear Episiotomy Type: None Laceration: None Placenta: Intact, Spontaneous Cord: 3 Vessels Estimated Blood Loss: 100 Resuscitation Needed: No Score 1 min: 6 Score 5 min: 8 Second Stage Interventions: Reports: Pushing, Pulls Own Legs Back Delivery Comments (Free Text/Narrative):: of viable male, head delivered, nuchal x3 reduced over head, shoulders and body followed. Infant slow to cry. CC and cut x2 and transferred to warmer. Pitocin to IVF. Cord blood collected. Placenta delivered grossly intact. Inspection noted intact perineum, EBL 100cc, APGARS 6/8, Wt: 6lb 15oz, mother and baby stable. - General Info Date of Service: 08/08/18 Admission Dx/Problem (Free Text): Patient Status Order with Admit Dx/Problem 08/07/18 20:30 Patient Status [ADT] Routine 08/07/18 22:12 Patient Status [ADT] Routine Admission Diagnosis/Problem Admission Diagnosis/Problem 08/07/18 22:32 27yo EDC 08/23/2018 37 5/7wks, AB +, RI, GBS neg. Labor Functional Status: Reports: Pain Controlled - Review of Systems General: Reports: No Symptoms HEENT: Reports: No Symptoms Pulmonary: Reports: No Symptoms Cardiovascular: Reports: No Symptoms Gastrointestinal: Reports: No Symptoms Genitourinary: Reports: No Symptoms Musculoskeletal: Reports: No Symptoms Skin: Reports: No Symptoms Neurological: Reports: No Symptoms Psychiatric: Reports: No Symptoms - Patient Data Lab Results Last 24 Hours: Laboratory Results - last 24 hr 08/07/18 08/07/18 08/07/18 Range/Units 22:25 22:25 22:30 WBC 11.66 H (4.0-11.0) K/uL RBC 3.49 L (4.30-5.90) M/uL Hgb 10.1 L (12.0-16.0) g/dL Hct 30.7 L (36.0-46.0) % MCV 88.0 (80.0-98.0) fL MCH 28.9 (27.0-32.0) pg MCHC 32.9 (31.0-37.0) g/dL RDW Std Deviation 42.7 (28.0-62.0) fl RDW Coeff of Lorri 13 (11.0-15.0) % Plt Count 265 (150-400) K/uL MPV 10.90 (7.40-12.00) fL Nucleated RBC % 0.0 /100WBC Nucleated RBCs # 0 K/uL Urine Opiates Screen NEGATIVE (NEGATIVE) Ur Oxycodone Screen NEGATIVE (NEGATIVE) Urine Methadone Screen NEGATIVE (NEGATIVE) Ur Barbiturates Screen NEGATIVE (NEGATIVE) Ur Phencyclidine Scrn NEGATIVE (NEGATIVE) Ur Amphetamine Screen NEGATIVE (NEGATIVE) U Methamphetamines Scrn NEGATIVE (NEGATIVE) U Benzodiazepines Scrn NEGATIVE (NEGATIVE) U Cocaine Metab Screen NEGATIVE (NEGATIVE) U Marijuana (THC) Screen NEGATIVE (NEGATIVE) Blood Type AB POSITIVE Antibody Screen NEGATIVE Med Orders - Current: Current Medications Butorphanol Tartrate (Stadol) 1 mg IVPUSH Q1H PRN PRN Reason: Pain Carboprost Tromethamine (Hemabate Ds) 250 mcg IM ASDIRECTED PRN PRN Reason: Post Hemorrhage Tranexamic Acid 1,000 mg/ (Sodium Chloride) 110 mls @ 660 mls/hr IV ONETIME PRN PRN Reason: Bleeding Lactated Ringer's (Ringers, Lactated) 1,000 mls @ 150 mls/hr IV ASDIRECTED MONALISA Oxytocin/Sodium Chloride (Oxytocin 30 Unit/500 Ml-Ns) 30 unit in 500 mls @ 555 mls/hr IV TITRATE MONALISA Lidocaine HCl (Xylocaine 1%) 50 ml INJECT ONETIME PRN PRN Reason: Laceration repair Methylergonovine Maleate (Methergine) 0.2 mg IM ASDIRECTED PRN PRN Reason: Post Hemorrhage Misoprostol (Cytotec) 200 mcg PO ONETIME PRN PRN Reason: Post Hemorrhage Nalbuphine HCl (Nubain) 10 mg IVPUSH Q1H PRN PRN Reason: Pain (severe 7-10) Sodium Chloride (Saline Flush) 10 ml FLUSH ASDIRECTED PRN PRN Reason: Keep Vein Open Sodium Chloride (Saline Flush) 2.5 ml FLUSH ASDIRECTED PRN PRN Reason: Keep Vein Open Sterile Water (Sterile Water For Irrigation) 1,000 ml IRR ASDIRECTED PRN PRN Reason: delivery Discontinued Medications Fentanyl (Sublimaze) Confirm Administered Dose 100 mcg .ROUTE .STK-MED ONE Stop: 08/08/18 01:35 Fentanyl/Bupivacaine HCl (Twbaxfkc-Sutra-Hd 2 Mcg/Ml-0.125%) Confirm Administered Dose 100 mls @ as directed .ROUTE .STK-MED ONE Stop: 08/08/18 01:35 Lidocaine/Epinephrine (Lidocaine 1.5%-Epi 1:200,000) Confirm Administered Dose 5 ml IJ .STK-MED ONE Stop: 08/08/18 01:36 - Exam General: Alert, Oriented, Cooperative Lungs: Normal Respiratory Effort GI/Abdominal Exam: Soft, Non-Tender (Female) Exam: Normal External Exam, Normal Bimanual Exam, Vaginal Bleeding Back Exam: Normal Inspection, Full Range of Motion Extremities: Normal Inspection, Non-Tender, No Pedal Edema, Normal Capillary Refill Skin: Warm, Dry, Intact Neurological: No New Focal Deficit, Normal Speech, Normal Tone Psy/Mental Status: Alert, Normal Affect, Normal Mood - Problem List & Annotations (1) Supervision of normal IUP (intrauterine ) in multigravida SNOMED Code(s): 370126805, 280245727, 311543613 Code(s): Z34.80 - ENCOUNTER FOR SUPRVSN OF NORMAL , UNSP TRIMESTER Status: Acute Priority: High Current Visit: Yes Qualifiers: Trimester: third trimester Qualified Code(s): Z34.83 - Encounter for supervision of other normal , third trimester (2) (normal spontaneous vaginal delivery) SNOMED Code(s): 52555768 Code(s): O80 - ENCOUNTER FOR FULL-TERM UNCOMPLICATED DELIVERY Status: Acute Priority: High Current Visit: Yes - Problem List Review Problem List Initiated/Reviewed/Updated: Yes - My Orders Last 24 Hours: My Active Orders 08/07/18 20:30 Patient Status [ADT] Routine Non Stress Test [RC] PER UNIT ROUTINE Up ad Skye [RC] ASDIRECTED Vaginal Exam [RC] Click to Edit Vital Signs [RC] PER UNIT ROUTINE Resuscitation Status Routine - Plan Plan:: Labor A: 27yo EDC 08/23/2018 37 5/7wks, AB +, RI, GBS neg. Labor P: Admit, epidural prn, anticipate , Dr Farah updated. Delivery A: of viable male, APGARS 6/8, Wt: 6lb 15oz, Intact, EBL 100cc, mother and baby stable P: Routine pp plan of care
[2018-08-08] MEDS ORDERED: Acetaminophen 500 MG Tab PO PRN ×2 (03:08)
[2018-08-08] MEDS ORDERED: Benzocaine/Menthol 20%-0.5% Spray 78 GM Cannister TOP PRN (03:08)
[2018-08-08] MEDS ORDERED: Witch Hazel Medicated Pads 40/Jar TOP PRN (03:08)
[2018-08-08] MEDS ORDERED: oxyCODONE 5 MG Tab PO PRN (03:08)
[2018-08-08] MEDS ORDERED: Lanolin 100% Cream 7 GM Tube TOP PRN (03:08)
[2018-08-08] MEDS ORDERED: Ibuprofen 400 MG Tab PO PRN (03:08)
[2018-08-08] MEDS ORDERED: Docusate Sodium 100 MG Cap PO PRN (03:08)
[2018-08-08] MEDS ORDERED: Bisacodyl 10 MG Supp RECTAL PRN (03:08)
--- NOTE | 2018-08-08 12:17 | PCM48HPAN ---
Post Anesthesia Note - EVALUATION WITHIN 48HRS OF ANESTHETIC Vital Signs in Normal Range: Yes Patient Participated in Evaluation: Yes Respiratory Function Stable: Yes Airway Patent: Yes Cardiovascular Function Stable: Yes Hydration Status Stable: Yes Pain Control Satisfactory: Yes Nausea and Vomiting Control Satisfactory: Yes Mental Status Recovered: Yes Resp Rate: 17 - COMMENTS/OBSERVATIONS Free Text/Narrative:: Sitting up in bed holding baby and denies any complaints
[2018-08-08] MEDS: Ibuprofen 800 MG Tab PO PRN ×2 (16:40→22:20)
--- NOTE | 2018-08-08 19:31 | PCM.DCSUM1 ---
Discharge Summary - Hospital Course Free Text/Narrative:: May discharge in AM with infant. Follow up in 6 weeks or sooner if needed. Diagnosis: Stroke: No - Discharge Data Discharge Date: 08/08/18 Discharge Disposition: Home, Self-Care 01 Condition: Good - Discharge Diagnosis/Problem(s) (1) Supervision of normal IUP (intrauterine ) in multigravida SNOMED Code(s): 287112245, 129845885, 953412051 ICD Code: Z34.80 - ENCOUNTER FOR SUPRVSN OF NORMAL , UNSP TRIMESTER Status: Acute Priority: High Current Visit: Yes Qualifiers: Trimester: third trimester Qualified Code(s): Z34.83 - Encounter for supervision of other normal , third trimester (2) (normal spontaneous vaginal delivery) SNOMED Code(s): 39747398 ICD Code: O80 - ENCOUNTER FOR FULL-TERM UNCOMPLICATED DELIVERY Status: Acute Priority: High Current Visit: Yes - Patient Instructions Diet: Usual Diet as Tolerated Activity: As Tolerated, No Strenuous Activities, Rest and Relax Today Driving: May Drive Today Showering/Bathing: May Shower Notify Provider of: Fever, Increased Pain, Swelling and Redness, Nausea and/or Vomiting Other/Special Instructions: May discharge in AM with . Follow up in 6 weeks or sooner if needed. - Discharge Plan *PRESCRIPTION DRUG MONITORING PROGRAM REVIEWED*: Not Applicable *COPY OF PRESCRIPTION DRUG MONITORING REPORT IN PATIENT IRENE: Not Applicable Home Medications: Home Meds . [No Known Home Meds] 07/27/18 [History] Oxygen Therapy Mode: Room Air - Discharge Summary/Plan Comment DC Time >30 min.: Yes - General Info Date of Service: 08/08/18 Admission Dx/Problem (Free Text: Patient Status Order with Admit Dx/Problem 08/07/18 20:30 Patient Status [ADT] Routine 08/07/18 22:12 Patient Status [ADT] Routine Admission Diagnosis/Problem Admission Diagnosis/Problem 08/07/18 22:32 27yo EDC 08/23/2018 37 5/7wks, AB +, RI, GBS neg. Labor Functional Status: Reports: Pain Controlled, Tolerating Diet, Ambulating, Urinating - Review of Systems General: Reports: No Symptoms HEENT: Reports: No Symptoms Pulmonary: Reports: No Symptoms Cardiovascular: Reports: No Symptoms Gastrointestinal: Reports: No Symptoms Genitourinary: Reports: No Symptoms Musculoskeletal: Reports: No Symptoms Skin: Reports: No Symptoms Neurological: Reports: No Symptoms Psychiatric: Reports: No Symptoms - Patient Data Vitals - Most Recent: Last Vital Signs Temp 36.5 C 08/08/18 16:45 Pulse 85 08/08/18 16:45 Resp 18 08/08/18 16:45 BP 119/71 08/08/18 16:45 Pulse Ox 97 08/08/18 16:45 Weight - Most Recent: 64.864 kg Lab Results - Last 24 hrs: Laboratory Results - last 24 hr 08/07/18 08/07/18 08/07/18 Range/Units 22:25 22:25 22:30 WBC 11.66 H (4.0-11.0) K/uL RBC 3.49 L (4.30-5.90) M/uL Hgb 10.1 L (12.0-16.0) g/dL Hct 30.7 L (36.0-46.0) % MCV 88.0 (80.0-98.0) fL MCH 28.9 (27.0-32.0) pg MCHC 32.9 (31.0-37.0) g/dL RDW Std Deviation 42.7 (28.0-62.0) fl RDW Coeff of Lorri 13 (11.0-15.0) % Plt Count 265 (150-400) K/uL MPV 10.90 (7.40-12.00) fL Nucleated RBC % 0.0 /100WBC Nucleated RBCs # 0 K/uL Urine Opiates Screen NEGATIVE (NEGATIVE) Ur Oxycodone Screen NEGATIVE (NEGATIVE) Urine Methadone Screen NEGATIVE (NEGATIVE) Ur Barbiturates Screen NEGATIVE (NEGATIVE) Ur Phencyclidine Scrn NEGATIVE (NEGATIVE) Ur Amphetamine Screen NEGATIVE (NEGATIVE) U Methamphetamines Scrn NEGATIVE (NEGATIVE) U Benzodiazepines Scrn NEGATIVE (NEGATIVE) U Cocaine Metab Screen NEGATIVE (NEGATIVE) U Marijuana (THC) Screen NEGATIVE (NEGATIVE) Blood Type AB POSITIVE Antibody Screen NEGATIVE Med Orders - Current: Current Medications Acetaminophen (Tylenol Extra Strength) 500 mg PO Q4H PRN PRN Reason: Pain Acetaminophen (Tylenol Extra Strength) 1,000 mg PO Q4H PRN PRN Reason: Pain Last Admin: 08/08/18 09:32 Dose: 1,000 mg Benzocaine/Menthol (Dermoplast Pain Relief 20%-0.5% [place]) 78 gm TOP ASDIRECTED PRN PRN Reason: Perineal Comfort Measure Bisacodyl (Dulcolax) 10 mg RECTAL ONETIME PRN PRN Reason: Constipation Docusate Sodium (Colace) 100 mg PO BID PRN PRN Reason: Constipation Emollient Ointment (Lansinoh Hpa) 0 gm TOP ASDIRECTED PRN PRN Reason: Sore Nipples Ibuprofen (Motrin) 400 mg PO Q4H PRN PRN Reason: Pain Ibuprofen (Motrin) 800 mg PO Q6H PRN PRN Reason: Pain Last Admin: 08/08/18 16:40 Dose: 800 mg Oxycodone HCl (Oxycodone) 5 mg PO Q2H PRN PRN Reason: Pain Witch Areli (Tucks) 1 pad TOP ASDIRECTED PRN PRN Reason: comfort care Discontinued Medications Butorphanol Tartrate (Stadol) 1 mg IVPUSH Q1H PRN PRN Reason: Pain Carboprost Tromethamine (Hemabate Ds) 250 mcg IM ASDIRECTED PRN PRN Reason: Post Hemorrhage Fentanyl (Sublimaze) Confirm Administered Dose 100 mcg .ROUTE .Embue-Actifi ONE Stop: 08/08/18 01:35 Tranexamic Acid 1,000 mg/ (Sodium Chloride) 110 mls @ 660 mls/hr IV ONETIME PRN PRN Reason: Bleeding Lactated Ringer's (Ringers, Lactated) 1,000 mls @ 150 mls/hr IV ASDIRECTED [facility] Oxytocin/Sodium Chloride (Oxytocin 30 Unit/500 Ml-Ns) 30 unit in 500 mls @ 555 mls/hr IV TITRATE MONALISA Fentanyl/Bupivacaine HCl (Kfgqfumd-Dnzgn-Xo 2 Mcg/Ml-0.125%) Confirm Administered Dose 100 mls @ as directed .ROUTE .Embue-MED ONE Stop: 08/08/18 01:35 Lidocaine HCl (Xylocaine 1%) 50 ml INJECT ONETIME PRN PRN Reason: Laceration repair Lidocaine/Epinephrine (Lidocaine 1.5%-Epi 1:200,000) Confirm Administered Dose 5 ml IJ .STGraffitiGeo-MED ONE Stop: 08/08/18 01:36 Methylergonovine Maleate (Methergine) 0.2 mg IM ASDIRECTED PRN PRN Reason: Post Hemorrhage Misoprostol (Cytotec) 200 mcg PO ONETIME PRN PRN Reason: Post Hemorrhage Nalbuphine HCl (Nubain) 10 mg IVPUSH Q1H PRN PRN Reason: Pain (severe 7-10) Sodium Chloride (Saline Flush) 10 ml FLUSH ASDIRECTED PRN PRN Reason: Keep Vein Open Sodium Chloride (Saline Flush) 2.5 ml FLUSH ASDIRECTED PRN PRN Reason: Keep Vein Open Sterile Water (Sterile Water For Irrigation) 1,000 ml IRR ASDIRECTED PRN PRN Reason: delivery - Exam General: Reports: Alert, Oriented, Cooperative Lungs: Reports: Normal Respiratory Effort GI/Abdominal Exam: Soft, Non-Tender (Female) Exam: Deferred, Vaginal Bleeding Rectal (Female) Exam: Deferred Back Exam: Reports: Normal Inspection, Full Range of Motion Extremities: Normal Inspection, Normal Range of Motion, Non-Tender, No Pedal Edema, Normal Capillary Refill Skin: Reports: Warm, Dry, Intact Wound/Incisions: Reports: Healing Well Neurological: Reports: No New Focal Deficit, Normal Gait, Normal Speech, Normal Tone Psy/Mental Status: Reports: Alert, Normal Affect, Normal Mood
[2018-08-09] MEDS: Ibuprofen 800 MG Tab PO PRN (05:40)
[2018-08-09 08:50] VITALS: BP 105/83
== END 2018-08-09 10:25 | disposition home or self-care (01) | DRG 807 ==
LOC: MW.OB 19:49 → MW.OBCHECK 19:49 → MW.OB 20:30 → OBSVTOIN 08-08 02:34 → MW.OB 08-08 14:58
PROVIDERS: ADMIT Obstetrics & Gynecology; ATTEND Obstetrics & Gynecology
PROC: 6A550ZT Pheresis of Cord Blood Stem Cells, Single (ICD-10-PCS; principal; 2018-08-08)
PROC: 10E0XZZ Delivery of Products of Conception, External Approach (ICD-10-PCS; principal; 2018-08-08)
PROC: 3E0R3BZ Introduction of Anesthetic Agent into Spinal Canal, Percutaneous Approach (ICD-10-PCS; 2018-08-08)
PROC: 00HU33Z Insertion of Infusion Device into Spinal Canal, Percutaneous Approach (ICD-10-PCS; 2018-08-08)
DX: O69.81X0 Labor and delivery complicated by cord around neck, without compression, not applicable or unspecified (principal); Z37.0 Single live birth; Z3A.37 37 weeks gestation of pregnancy; Z88.1 Allergy status to other antibiotic agents
CPT/HCPCS: 36415; 59025; 59409; 80305-QW; 85027; 86850; 86900; 86901; A9270-GY; J3010

== ENCOUNTER 2020-01-25 01:17 | Emergency (ER) | payer MEDICAID ==
[2020-01-25] MEDS ORDERED: Acetaminophen/oxyCODONE 325-5 MG Tab PO ONE (01:47)
[2020-01-25] MEDS ORDERED: Lidocaine 5% 700 MG Patch TOP ONE (01:47)
--- NOTE | 2020-01-25 01:53 | EDM.PDOC ---
ED HPI GENERAL MEDICAL PROBLEM - General Chief Complaint: Back Pain or Injury Stated Complaint: PULLED MUSCLE IN BACK Time Seen by Provider: 01/25/20 01:19 Source of Information: Reports: Patient, Old Records History Limitations: Reports: No Limitations - History of Present Illness INITIAL COMMENTS - FREE TEXT/NARRATIVE: 29-year-old female approximately 36 weeks , -0-0-4 presenting with back pain. Patient states that approximately 24 hours ago, she was coughing when she felt a pop to the left side of her upper back. Since then, she has had severe pain when she is breathing and is complaining of tenderness to the same area. She tried to have her massage the area but it did not quite help. She did call her OB physician who advised her to take eyfr-yrf-nsbxoge acetaminophen and try a heating pad and cold packs, which have not quite helped. She was concerned about persistent pain so she presents to the emergency department. She now states that the pain in her back is radiating to the left trapezius. Denies any blunt trauma. She denies central chest pain, shortness of breath, hemoptysis, leg swelling or pain, history of VTE, recent surgery or immobilization or long travel, history of cancer. ROS: A 10-point review of systems was negative, except as noted in the HPI (or in the ROS section of this note). Past medical history: Reviewed, no additional pertinent history. Surgical history: Reviewed in system, no additional pertinent history. Social history: Reviewed in system, no additional pertinent history. Family history: Reviewed in system, no additional pertinent history. PHYSICAL EXAM Vital signs reviewed. Nursing notes reviewed. Constitutional: Awake, alert, non-distressed. Head: Normocephalic, atraumatic. Eyes: EOMI, conjunctiva normal, no discharge, no scleral icterus. Ears, Nose, Throat: External ears and nose normal, moist oral mucosa. Cardiovascular: 2+ radial pulse, capillary refill less than 2 seconds. Pulmonary: normal work of breathing, no accessory muscle use. CTA BL Abdomen/GI: Soft, nontender, nondistended, no guarding or rigidity, no masses. Musculoskeletal: No deformities. Back: Tenderness to palpation just cephalad to the left flank, no paradoxical movement or crepitus. Integumentary: Appropriate color for ethnicity, warm, dry, no pallor or jaundice, no rash. Neurologic: Alert, answering questions appropriately, normal speech, no facial droop, moving all extremities well. Psychiatric: Appropriate mood and affect, normal thought process. Left Middle Back Pain Score (Numeric/FACES): 10 - Related Data Allergies Allergy/AdvReac Type Severity Reaction Status Date / Time cephalexin monohydrate Allergy Intermediate throat Verified 01/25/20 01:38 [From Keflex] swelling Home Meds: Home Meds . [No Known Home Meds] 07/27/18 [History] Past Medical History - Past Health History Medical/Surgical History: Denies Medical/Surgical History HEENT History: Reports: None Cardiovascular History: Reports: None Respiratory History: Reports: None Gastrointestinal History: Reports: None Genitourinary History: Reports: None PATIENT SERVICE COORDINATOR History: Reports: , Other (See Below) Other PATIENT SERVICE COORDINATOR History: Tubal Ligation. G 5 P 5 Musculoskeletal History: Reports: None Neurological History: Reports: None Psychiatric History: Reports: None Endocrine/Metabolic History: Reports: None Hematologic History: Reports: None Oncologic (Cancer) History: Reports: None Dermatologic History: Reports: None - Infectious Disease History Infectious Disease History: Reports: Chicken Pox - Past Surgical History Female Surgical History: Reports: Tubal Ligation Other Female Surgeries/Procedures: states had tubal ligation reversed Social & Family History - Family History Family Medical History: Noncontributory Oncologic: Reports: Lung - Tobacco Use Smoking Status *Q: Never Smoker - Caffeine Use Caffeine Use: Reports: None - Recreational Drug Use Recreational Drug Use: No ED ROS GENERAL - Review of Systems Review Of Systems: See Below ED EXAM, UPPER BACK/NECK PAIN - Physical Exam Exam: See Below Course - Vital Signs Text/Narrative:: Patient hemodynamically stable, afebrile, well-appearing, looks nontoxic. Differential diagnosis includes but is not limited to: Muscle strain, intercostal muscle spasm, rib fracture, rib contusion, pneumothorax, pulmonary embolism, pyelonephritis, etc. Suspect a muscle strain given suddent onset with coughing. Low suspicion for pulmonary embolism - no pleuritic chest pain, no shortness of breath, low leg swelling, patient is not hypoxic or tachycardic. Lungs are clear to auscultation which argues against pneumothorax. No evidence of paradoxical ch est wall movement or crepitus which argues against a rib fracture. No urinary symptoms such as dysuria or urinary frequency or hematuria, no fever to suggest pyelonephritis. FHTs 154/minute by Doppler. Denies abdominal pain, low back pain, or vaginal bleeding. Treated symptomatically with oral Percocet and a lidocaine patch. 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 Strict return precautions for worsening pain, shortness of breath, or central chest pain. Recommended dgig-ooa-rmoiauh acetaminophen, lidocaine patches, and heating pad. Plan: Patient is stable to discharge home with outpatientfollow-up. Strict emergency department return precautions were provided, patient indicated understanding. All questions were answered prior to departure. Discharged in good condition. Last Recorded V/S: Last Vital Signs Temp 35.8 C L 01/25/20 01:22 Pulse 78 01/25/20 01:22 Resp 18 01/25/20 01:22 BP 101/69 01/25/20 01:22 Pulse Ox 95 01/25/20 01:22 - Orders/Labs/Meds Orders: Active Orders 24 hr Category Date Time Status Heart Tones [RC] ASDIRECTED Care 01/25/20 01:37 Active Meds: Medications Discontinued Medications Generic Name Dose Route Start Last Admin Trade Name Freq PRN Reason Stop Dose Admin Lidocaine 700 mg 01/25/20 01:47 Lidoderm 5% TOP 01/25/20 01:48 ONETIME ONE Oxycodone/Acetaminophen 2 tab 01/25/20 01:47 Percocet 325-5 Mg PO 01/25/20 01:48 ONETIME ONE Departure - Departure Time of Disposition: 01:51 Disposition: Home, Self-Care 01 Condition: Good Clinical Impression: Muscle spasm of back - Discharge Information *PRESCRIPTION DRUG MONITORING PROGRAM REVIEWED*: Not Applicable *COPY OF PRESCRIPTION DRUG MONITORING REPORT IN PATIENT IRENE: Not Applicable Instructions: Muscle Strain, Cegv-rm-Hpwd Referrals: Franco Wilson MD [Primary Care Provider] - 1 Week (As needed.) Additional Instructions: Thank you for choosing the [facility] emergency department in [place] for your medical needs today. It was a pleasure caring for you. You were seen in the emergency department for upper back pain. I suspect that you have strained a muscle in your back or a muscle in between your ribs. The treatment is symptomatic, with iajl-hzk-sucesbz acetaminophen, lidocaine patches, and a heating pad. Unfortunately many of the anti-inflammatory medications are harmful to a growing baby. I would like for you to follow-up with your primary doctor in the next several days if you are not feeling better. If you are feeling worse or your pain intensifies, come back to the ER immediately. Please return the emergency department immediately if your symptoms worsen or if you feel worse. The following information is given to patients seen in the emergency department who are being discharged. This information is to outline your options for follow-up care. We provide all patients seen in our emergency department with a follow-up referral. The need for follow-up, as well as the timing and circumstances, are variable depending upon the specifics of your emergency department visit. If you don't have a primary care physician on staff, we will provide you with a referral. We always advise you to contact your personal physician following an emergency department visit to inform them of the circumstance of the visit and for follow-up with them and/or the need for any referrals to a consulting specialist. The emergency department will also refer you to a specialist when appropriate. This referral assures that you have the opportunity for follow-up care with a specialist. All of these measure are taken in an effort to provide you with optimal care, which includes your follow-up. Under all circumstances we always encourage you to contact your private physician who remains a resource for coordinating your care. When calling for follow-up care, please make the office aware that this follow-up is from your recent emergency room visit. If for any reason you are refused follow-up, please contact the [facility] Emergency Department at and asked to speak to the emergency department charge nurse. If you do not have a primary care physician that is caring for you, you can c ontact these clinics below to set up an appointment to establish care: [facility] - Primary Care [address] [place] [address] [facility] [address] [place] [address] Sepsis Event Note (ED) - Evaluation Sepsis Screening Result: No Definite Risk - Focused Exam Vital Signs: Vital Signs Temp Pulse Resp BP Pulse Ox 01/25/20 01:22 35.8 C L 78 18 101/69 95 - My Orders Last 24 Hours: My Active Orders 01/25/20 01:37 Heart Tones [RC] ASDIRECTED - Assessment/Plan Last 24 Hours: My Active Orders 01/25/20 01:37 Heart Tones [RC] ASDIRECTED
[2020-01-25 02:25] VITALS: BP 109/66; PULSE 91
== END 2020-01-25 02:05 | disposition home or self-care (01) ==
LOC: MW.ED 01:17
DX: O99.89 Other specified diseases and conditions complicating pregnancy, childbirth and the puerperium (principal); M62.830 Muscle spasm of back; Z88.1 Allergy status to other antibiotic agents; Z98.51 Tubal ligation status; Z3A.36 36 weeks gestation of pregnancy
CPT/HCPCS: 99283; A9270

== ENCOUNTER 2020-02-01 08:31 | Inpatient (IN) | payer MEDICAID, OTHER ==
[2020-02-01] MEDS ORDERED: Water For Irrigation,Sterile 1,000 ML Container IRR PRN (08:48)
[2020-02-01] MEDS ORDERED: Misoprostol 200 MCG Tab PO PRN (08:48)
[2020-02-01] MEDS ORDERED: Nalbuphine 10 MG/1 ML Vial IVPUSH PRN (08:48)
[2020-02-01] MEDS ORDERED: Lidocaine 1% 50 ML MDV INJECT PRN (08:48)
[2020-02-01] MEDS ORDERED: Sodium Chloride 0.9% 2.5 ML Syringe FLUSH PRN (08:48)
[2020-02-01] MEDS ORDERED: Sodium Chloride 0.9% 10 ML Syringe FLUSH PRN (08:48)
[2020-02-01] MEDS ORDERED: Ondansetron 4 MG/2 ML SDV IVPUSH PRN (08:48)
[2020-02-01] MEDS ORDERED: Tranexamic Acid 1,000 MG in Sodium Chloride 0.9% 100 ML IV PRN (08:48)
[2020-02-01] MEDS ORDERED: Carboprost Tromethamine 250 MCG/1 ML Amp IM PRN (08:48)
[2020-02-01] MEDS ORDERED: Methylergonovine 0.2 MG/1 ML Amp IM PRN (08:48)
[2020-02-01] MEDS ORDERED: Sodium Chloride 0.9% 10 ML SDV IV PRN (08:48)
[2020-02-01] MEDS ORDERED: Butorphanol 1 MG/ML SDV IVPUSH PRN (08:48)
[2020-02-01] MEDS ORDERED: Oxytocin/0.9 % Sodium Chloride 30 UNIT/500 ML BAG IV SCH ×2 (09:00→11:45)
[2020-02-01] MEDS: Lactated Ringers 1,000 ML IV SCH ×2 (09:08→10:03)
--- NOTE | 2020-02-01 09:20 | PCM.LDHP ---
L&D History of Present Illness - General Date of Service: 02/01/20 Admit Problem/Dx: Patient Status Order with Admit Dx/Problem 02/01/20 08:20 Patient Status [ADT] Routine Admission Diagnosis/Problem Admission Diagnosis/Problem 02/01/20 09:16 Yue is a 28 yo at 37.5 weeks (EDD02/17/2020) that presents today with C/O contractions since 1 am that have worsened, sharp, 7/10, intermittent, able to breathe through but not talk during contractions. AB pos, RI, GBS neg. Hx of uncomplicated x 4, proven pelvis to 6 lb 15 oz, umbilical hernia, severe anxiety with panic, restless leg, depression. Patient reports she desires epidural. Patient denies any other complaints or concerns at this time, resting calm and comfortable in bed between contractions. Source of Information: Patient History Limitations: Reports: No Limitations - History of Present Illness Location, : Reports: Abdomen, Vagina Severity: Severe Pain Score: 7 Improves with: Reports: Movement Worsens with: Reports: Immobilization Associated Symptoms: Reports: vaginal bleeding (Bloody show) - Related Data Allergies/Adverse Reactions: Allergies Allergy/AdvReac Type Severity Reaction Status Date / Time cephalexin monohydrate Allergy Intermediate throat Verified 02/01/20 08:47 [From Keflex] swelling Home Medications: Home Meds . 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 G 5 P 5 Musculoskeletal History: Reports: None Neurological History: Reports: None Psychiatric History: Reports: None Endocrine/Metabolic History: Reports: None Hematologic History: Reports: None Oncologic (Cancer) History: Reports: None Dermatologic History: Reports: None - Infectious Disease History Infectious Disease History: Reports: Chicken Pox - Past Surgical History Female Surgical History: Reports: Tubal Ligation Other Female Surgeries/Procedures: states had tubal ligation reversed Social & Family History - Family History Family Medical History: Noncontributory Oncologic: Reports: Lung - Caffeine Use Caffeine Use: Reports: None H&P Review of Systems - Review of Systems: Review Of Systems: Comprehensive ROS is negative, except as noted in HPI. General: Reports: No Symptoms HEENT: Reports: No Symptoms Pulmonary: Reports: No Symptoms Cardiovascular: Reports: No Symptoms Gastrointestinal: Reports: No Symptoms Genitourinary: Reports: No Symptoms Musculoskeletal: Reports: No Symptoms Skin: Reports: No Symptoms Psychiatric: Reports: No Symptoms Neurological: Reports: No Symptoms Hematologic/Lymphatic: Reports: No Symptoms Immunologic: Reports: No Symptoms L&D Exam - Exam Exam: See Below - Vital Signs Weight: 150 lb - OB Specific Fundal Height In cm: 37 Contraction Duration (sec): 60-80 Contraction Frequency (min): 2-4 Contraction Intensity: Moderate to Strong Movement: Active Heart Tones: Present Heart Tones per Min: 125 Heart Rate (FHR) Variability: Moderate (6-25 bmp) Presentation: Vertex - Rizo Score Rizo Score Cervix Position: Midposition Rizo Score Consistency: Soft Rizo Score Effacement: >80% Rizo Score Dilation: 3-4 cm Rizo Score 's Station: -1 ,0 Rizo Score Total: 10 - Exam General: Alert, Oriented, Cooperative HEENT: Conjunctiva Clear, Hearing Intact, Mucosa Moist & [place], Nares Patent, PERRLA Neck: Supple, Trachea Midline Lungs: Clear to Auscultation, Normal Respiratory Effort Cardiovascular: Regular Rate, Regular Rhythm GI/Abdominal Exam: Normal Bowel Sounds, Soft, Non-Tender, No Organomegaly, No Distention, Other (Gravid uterus) Rectal Exam: Deferred Genitourinary: Normal external exam, Normal bimanual exam (4-5/90/-1, mid, soft, BB) Back Exam: Normal Inspection, Full Range of Motion Extremities: Normal Inspection, Normal Range of Motion, Non-Tender, No Pedal Edema, Normal Capillary Refill Skin: Warm, Dry, Intact Neurological: Cranial Nerves Intact, Reflexes Equal Bilateral Psychiatric: Alert, Normal Affect, Normal Mood - Problem List (1) Supervision of normal IUP (intrauterine ) in multigravida SNOMED Code(s): 094081259, 384927803, 335738642 ICD Code: Z34.80 - ENCOUNTER FOR SUPRVSN OF NORMAL , UNSP TRIMESTER Status: Acute Priority: High Current Visit: Yes Qualifiers: Trimester: third trimester Qualified Code(s): Z34.83 - Encounter for supervision of other normal , third trimester (2) 37 or more weeks gestation of SNOMED Code(s): 93747517 ICD Code: [id number] - Status: Acute Priority: High Current Visit: Yes Problem List Initiated/Reviewed/Updated: Yes Orders Last 24hrs: Active Orders 24 hr Category Date Time Status Patient Status [ADT] Routine ADT 02/01/20 08:20 Active Heart Tones [RC] CONTINUOUS Care 02/01/20 08:48 Active Non Stress Test [RC] PER UNIT ROUTINE Care 02/01/20 08:48 Active May Shower [RC] ASDIRECTED Care 02/01/20 08:48 Active Notify Provider [RC] PRN Care 02/01/20 08:48 Active Up ad Skye [RC] ASDIRECTED Care 02/01/20 08:48 Active Vaginal Exam [RC] PRN Care 02/01/20 08:48 Active Vital Signs [RC] PER UNIT ROUTINE Care 02/01/20 08:48 Active CBC W/O DIFF,HEMOGRAM [HEME] Routine Lab 02/01/20 08:48 Ordered CORONAVIRUS COVID-19 PCR PHL Stat Lab 02/01/20 08:51 Ordered RPR (SYPHILIS SERO) W/ RFLX [REF] Routine Lab 02/01/20 08:48 Ordered TYPE AND SCREEN [BBK] Routine Lab 02/01/20 08:48 Ordered Butorphanol [Stadol] Med 02/01/20 08:48 Active 1 mg IVPUSH Q1H PRN Carboprost Tromethamine [Hemabate DS] Med 02/01/20 08:48 Active 250 mcg IM ASDIRECTED PRN Lactated Ringers [Ringers, Lactated] 1,000 ml Med 02/01/20 09:00 Active IV ASDIRECTED Lidocaine 1% [Xylocaine 1%] Med 02/01/20 08:48 Active 50 ml INJECT ONETIME PRN Methylergonovine [Methergine] Med 02/01/20 08:48 Active 0.2 mg IM ASDIRECTED PRN Nalbuphine [Nubain] Med 02/01/20 08:48 Active 10 mg IVPUSH Q1H PRN Ondansetron [Zofran] Med 02/01/20 08:48 Active 4 mg IVPUSH Q4H PRN Oxytocin/0.9 % Sodium Chloride [Oxytocin 30 Unit/500 ML Med 02/01/20 09:00 Active -NS] 30 unit in 500 ml IV TITRATE Sodium Chloride 0.9% [Normal Saline] Med 02/01/20 08:48 Active 10 ml IV ASDIRECTED PRN Sodium Chloride 0.9% [Saline Flush] Med 02/01/20 08:48 Active 10 ml FLUSH ASDIRECTED PRN Sodium Chloride 0.9% [Saline Flush] Med 02/01/20 08:48 Active 2.5 ml FLUSH ASDIRECTED PRN Tranexamic Acid [Cyklokapron] 1,000 mg Med 02/01/20 08:48 Active Sodium Chloride 0.9% [Normal Saline] 100 ml IV ONETIME Water For Irrigation,Sterile [Sterile Water for Med 02/01/20 08:48 Active Irrigation] 1,000 ml IRR ASDIRECTED PRN miSOPROStoL [Cytotec] Med 02/01/20 08:48 Active 200 mcg PO ONETIME PRN Scalp Electrode [WOMSER] Per Unit Routine Oth 02/01/20 08:48 Ordered Peripheral IV Insertion Adult [OM.PC] Routine Oth 02/01/20 08:48 Ordered Resuscitation Status Routine Resus Stat 02/01/20 08:48 Ordered Medication Orders Butorphanol Tartrate (Stadol) 1 mg IVPUSH Q1H PRN PRN Reason: Pain Carboprost Tromethamine (Hemabate Ds) 250 mcg IM ASDIRECTED PRN PRN Reason: Post Hemorrhage Oxytocin/Sodium Chloride (Oxytocin 30 Unit/500 Ml-Ns) 30 unit in 500 mls @ 500 mls/hr IV TITRATE MONALISA Tranexamic Acid 1,000 mg/ (Sodium Chloride) 110 mls @ 660 mls/hr IV ONETIME PRN PRN Reason: Bleeding Lactated Ringer's (Ringers, Lactated) 1,000 mls @ 150 mls/hr IV ASDIRECTED MONALISA Lidocaine HCl (Xylocaine 1%) 50 ml INJECT ONETIME PRN PRN Reason: Laceration repair Methylergonovine Maleate (Methergine) 0.2 mg IM ASDIRECTED PRN PRN Reason: Post Hemorrhage Misoprostol (Cytotec) 200 mcg PO ONETIME PRN PRN Reason: Post Hemorrhage Nalbuphine HCl (Nubain) 10 mg IVPUSH Q1H PRN PRN Reason: Pain (severe 7-10) Ondansetron HCl (Zofran) 4 mg IVPUSH Q4H PRN PRN Reason: Nausea/Vomiting Sodium Chloride (Saline Flush) 10 ml FLUSH ASDIRECTED PRN PRN Reason: Keep Vein Open Sodium Chloride (Saline Flush) 2.5 ml FLUSH ASDIRECTED PRN PRN Reason: Keep Vein Open Sodium Chloride (Normal Saline) 10 ml IV ASDIRECTED PRN PRN Reason: IV Use Sterile Water (Sterile Water For Irrigation) 1,000 ml IRR ASDIRECTED PRN PRN Reason: delivery Assessment/Plan Comment:: Admit for observation to L&D in anticipation of of term due to onset of spontaneous labor. SVE 4-5/90/-1, BB. FHR 120s, Cat I. Contractions strong every 2-4 min. See new orders. May receive 1000 ml LR bolus in anticipation of epidural analgesia. Dr. Farah notified and agreeable with POC.
[2020-02-01] MEDS ORDERED: Ropivacaine 0.2% PF 2 MG/ML 20 ML SDV ONE (09:53)
[2020-02-01] MEDS ORDERED: Ropivacaine HCl/PF 100 ML ONE (09:53)
[2020-02-01] MEDS ORDERED: fentaNYL 100 MCG/2 ML SDV ONE (09:53)
[2020-02-01] MEDS ORDERED: ePHEDrine 50 MG/ML SDV ONE (10:29)
[2020-02-01] MEDS ORDERED: Sodium Chloride 0.9% 20 ML ONE (10:29)
--- NOTE | 2020-02-01 10:54 | PCM.PREANE ---
Preanesthetic Assessment - Procedure Proposed Procedure: GAVIN - Anesthesia/Transfusion/Family Hx Anesthesia History: Prior Anesthesia Without Reaction Family History of Anesthesia Reaction: No Transfusion History: No Prior Transfusion(s) Type of Transfusion Reactions: Reports: Unknown Intubation History: Unknown - Review of Systems General: No Symptoms Pulmonary: No Symptoms Cardiovascular: No Symptoms Gastrointestinal: No Symptoms Neurological: No Symptoms Other: Reports: Anxiety - Physical Assessment NPO Status Date: 02/01/20 NPO Status Time: 10:52 (Clear liquids) Height: 1.52 m Weight: 68.039 kg ASA Class: 2 Mental Status: Alert & Oriented x3 Airway Class: Mallampati = 2 Dentition: Reports: Normal Dentition ROM/Head Extension: Full Lungs: Clear to Auscultation Cardiovascular: Regular Rate - Lab Values: Laboratory Last Values WBC 11.98 K/uL (4.0-11.0) H 02/01/20 09:05 RBC 3.61 M/uL (4.30-5.90) L 02/01/20 09:05 Hgb 9.8 g/dL (12.0-16.0) L 02/01/20 09:05 Hct 31.6 % (36.0-46.0) L 02/01/20 09:05 MCV 87.5 fL (80.0-98.0) 02/01/20 09:05 MCH 27.1 pg (27.0-32.0) 02/01/20 09:05 MCHC 31.0 g/dL (31.0-37.0) 02/01/20 09:05 RDW Std Deviation 47.5 fl (28.0-62.0) 02/01/20 09:05 RDW Coeff of Lorri 15 % (11.0-15.0) 02/01/20 09:05 Plt Count 310 K/uL (150-400) 02/01/20 09:05 MPV 11.20 fL (7.40-12.00) 02/01/20 09:05 Nucleated RBC % 0.0 /100WBC 02/01/20 09:05 Nucleated RBCs # 0 K/uL 02/01/20 09:05 COVID-19 (FROY) NEGATIVE (NEGATIVE) 02/01/20 09:08 Blood Type AB POSITIVE 02/01/20 09:05 Antibody Screen NEGATIVE 02/01/20 09:05 - Allergies Allergies/Adverse Reactions: Allergies Allergy/AdvReac Type Severity Reaction Status Date / Time cephalexin monohydrate Allergy Intermediate throat Verified 02/01/20 08:47 [From Keflex] swelling - Blood Blood Available: No Product(s) Available: None - Anesthesia Plan Pre-Op Medication Ordered: None - Acknowledgements Anesthesia Type Planned: Epidural Pt an Appropriate Candidate for the Planned Anesthesia: Yes Alternatives and Risks of Anesthesia Discussed w Pt/Guardian: Yes Pt/Guardian Understands and Agrees with Anesthesia Plan: Yes Additional Comments: 37 10/26. Active labor Pain 03/31. 4-5 cm. Requests GAVIN. Acceptable candidate. 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 G 5 P 5 Musculoskeletal History: Reports: None Neurological History: Reports: None Psychiatric History: Reports: None Endocrine/Metabolic History: Reports: None Hematologic History: Reports: None Oncologic (Cancer) History: Reports: None Dermatologic History: Reports: None - Infectious Disease History Infectious Disease History: Reports: Chicken Pox - Past Surgical History Female Surgical History: Reports: Tubal Ligation Other Female Surgeries/Procedures: states had tubal ligation reversed - HOME MEDS Home Medications: Home Meds . [No Known Home Meds] 07/27/18 [History] - CURRENT (IN HOUSE) MEDS Current Meds: Current Medications Butorphanol Tartrate (Stadol) 1 mg IVPUSH Q1H PRN PRN Reason: Pain Carboprost Tromethamine (Hemabate Ds) 250 mcg IM ASDIRECTED PRN PRN Reason: Post Hemorrhage Oxytocin/Sodium Chloride (Oxytocin 30 Unit/500 Ml-Ns) 30 unit in 500 mls @ 500 mls/hr IV TITRATE MONALISA Tranexamic Acid 1,000 mg/ (Sodium Chloride) 110 mls @ 660 mls/hr IV ONETIME PRN PRN Reason: Bleeding Lactated Ringer's (Ringers, Lactated) 1,000 mls @ 150 mls/hr IV ASDIRECTED MONALISA Last Admin: 02/01/20 10:03 Dose: 999 mls/hr Documented by: Lidocaine HCl (Xylocaine 1%) 50 ml INJECT ONETIME PRN PRN Reason: Laceration repair Methylergonovine Maleate (Methergine) 0.2 mg IM ASDIRECTED PRN PRN Reason: Post Hemorrhage Misoprostol (Cytotec) 200 mcg PO ONETIME PRN PRN Reason: Post Hemorrhage Nalbuphine HCl (Nubain) 10 mg IVPUSH Q1H PRN PRN Reason: Pain (severe 7-10) Ondansetron HCl (Zofran) 4 mg IVPUSH Q4H PRN PRN Reason: Nausea/Vomiting Sodium Chloride (Saline Flush) 10 ml FLUSH ASDIRECTED PRN PRN Reason: Keep Vein Open Sodium Chloride (Saline Flush) 2.5 ml FLUSH ASDIRECTED PRN PRN Reason: Keep Vein Open Sodium Chloride (Normal Saline) 10 ml IV ASDIRECTED PRN PRN Reason: IV Use Sterile Water (Sterile Water For Irrigation) 1,000 ml IRR ASDIRECTED PRN PRN Reason: delivery Discontinued Medications Ephedrine Sulfate (Ephedrine Sulfate) Confirm Administered Dose 100 mg .ROUTE .STK-MED ONE Stop: 02/01/20 10:30 Fentanyl (Sublimaze) Confirm Administered Dose 100 mcg .ROUTE .STK-MED ONE Stop: 02/01/20 09:54 Ropivacaine (Naropin 0.2%) Confirm Administered Dose 100 mls @ as directed .ROUTE .STK-MED ONE Stop: 02/01/20 09:54 Sodium Chloride (Normal Saline) Confirm Administered Dose 20 mls @ as directed .ROUTE .STK-MED ONE Stop: 02/01/20 10:30 Ropivacaine (Naropin 0.2%) Confirm Administered Dose 20 ml .ROUTE .STK-MED ONE Stop: 02/01/20 09:54
[2020-02-01] MEDS ORDERED: Misoprostol 25 MCG (1/4 of 100 MCG) Tab VAG PRN (11:32)
[2020-02-01] MEDS ORDERED: Terbutaline 1 MG/ML SDV SUBCUT PRN (11:32)
--- NOTE | 2020-02-01 13:02 | PCM.DEL ---
L & D Note - General Info Date of Service: 02/01/20 Mother's Due Date: 02/17/20 - Delivery Note Labor: Spontaneous, Augmented by Oxytocin Delivery Outcome: Livebirth Infant Delivery Method: Spontaneous Vaginal Delivery-Single Infant Delivery Mode: Spontaneous Presentation: Vertex Nuchal Cord: None Anesthesia Type: Epidural Amniotic Fluid Description: Clear Episiotomy Type: None Laceration: None Placenta: Intact, Spontaneous Cord: 3 Vessels Estimated Blood Loss: 300 Resuscitation Needed: No : Stimulated, Warmed, [place] Used Score 1 min: 8 Score 5 min: 9 Second Stage Interventions: Reports: Encouragement Given, Pushing Effectively, Pushing, Feet in Foot Rests Delivery Comments (Free Text/Narrative):: Yue is a 28 yo at 37.5 weeks (EDD02/17/2020) S/P uncomplicated of viable, term NBM with spontaneous cries at . NBM placed to maternal abdomen and warmed, dried, stimulated by mother and RN. Apgars 8/9. Umbilical cord clamped x 2, cut by FOB ~4-5 min S/P . Placenta spontaneously delivered 5-6 minutes S/P , [place], intact, 3VC. Perineum intact. EBL 300 ml. Mother resting comfortably in bed with epidural analgesia. NBM at warmer with RN for further evaluation. - General Info Date of Service: 02/01/20 Admission Dx/Problem (Free Text): Patient Status Order with Admit Dx/Problem 02/01/20 08:20 Patient Status [ADT] Routine Admission Diagnosis/Problem Admission Diagnosis/Problem 02/01/20 09:16 Yue is a 28 yo at 37.5 weeks (EDD02/17/2020) that presents today with C/O contractions since 1 am that have worsened, sharp, 7/10, intermittent, able to breathe through but not talk during contractions. AB pos, RI, GBS neg. Hx of uncomplicated x 4, proven pelvis to 6 lb 15 oz, umbilical hernia, severe anxiety with panic, restless leg, depression. Patient reports she desires epidural. Patient denies any other complaints or concerns at this time, resting calm and comfortable in bed between contractions. Functional Status: Reports: Pain Controlled - Review of Systems General: Reports: No Symptoms HEENT: Reports: No Symptoms Pulmonary: Reports: No Symptoms Cardiovascular: Reports: No Symptoms Gastrointestinal: Reports: No Symptoms Genitourinary: Reports: No Symptoms Musculoskeletal: Reports: No Symptoms Skin: Reports: No Symptoms Neurological: Reports: No Symptoms Psychiatric: Reports: No Symptoms - Patient Data Weight - Most Recent: 150 lb Lab Results Last 24 Hours: Laboratory Results - last 24 hr 02/01/20 02/01/20 02/01/20 Range/Units 09:05 09:05 09:08 WBC 11.98 H (4.0-11.0) K/uL RBC 3.61 L (4.30-5.90) M/uL Hgb 9.8 L (12.0-16.0) g/dL Hct 31.6 L (36.0-46.0) % MCV 87.5 (80.0-98.0) fL MCH 27.1 (27.0-32.0) pg MCHC 31.0 (31.0-37.0) g/dL RDW Std Deviation 47.5 (28.0-62.0) fl RDW Coeff of Lorri 15 (11.0-15.0) % Plt Count 310 (150-400) K/uL MPV 11.20 (7.40-12.00) fL Nucleated RBC % 0.0 /100WBC Nucleated RBCs # 0 K/uL COVID-19 (FROY) NEGATIVE (NEGATIVE) Blood Type AB POSITIVE Antibody Screen NEGATIVE Med Orders - Current: Current Medications Butorphanol Tartrate (Stadol) 1 mg IVPUSH Q1H PRN PRN Reason: Pain Carboprost Tromethamine (Hemabate Ds) 250 mcg IM ASDIRECTED PRN PRN Reason: Post Hemorrhage Oxytocin/Sodium Chloride (Oxytocin 30 Unit/500 Ml-Ns) 30 unit in 500 mls @ 500 mls/hr IV TITRATE MONALISA Tranexamic Acid 1,000 mg/ (Sodium Chloride) 110 mls @ 660 mls/hr IV ONETIME PRN PRN Reason: Bleeding Lactated Ringer's (Ringers, Lactated) 1,000 mls @ 150 mls/hr IV ASDIRECTED MONALISA Last Admin: 02/01/20 10:03 Dose: 999 mls/hr Documented by: Oxytocin/Sodium Chloride (Oxytocin 30 Unit/500 Ml-Ns) 30 unit in 500 mls @ 2 mls/hr IV TITRATE MONALISA; Protocol Last Admin: 02/01/20 11:37 Dose: 2 munits/min, 2 mls/hr Documented by: Lidocaine HCl (Xylocaine 1%) 50 ml INJECT ONETIME PRN PRN Reason: Laceration repair Methylergonovine Maleate (Methergine) 0.2 mg IM ASDIRECTED PRN PRN Reason: Post Hemorrhage Misoprostol (Cytotec) 200 mcg PO ONETIME PRN PRN Reason: Post Hemorrhage Misoprostol (Cytotec) 25 mcg VAG ONETIME PRN PRN Reason: Cervical Ripening Nalbuphine HCl (Nubain) 10 mg IVPUSH Q1H PRN PRN Reason: Pain (severe 7-10) Ondansetron HCl (Zofran) 4 mg IVPUSH Q4H PRN PRN Reason: Nausea/Vomiting Sodium Chloride (Saline Flush) 10 ml FLUSH ASDIRECTED PRN PRN Reason: Keep Vein Open Sodium Chloride (Saline Flush) 2.5 ml FLUSH ASDIRECTED PRN PRN Reason: Keep Vein Open Sodium Chloride (Normal Saline) 10 ml IV ASDIRECTED PRN PRN Reason: IV Use Sterile Water (Sterile Water For Irrigation) 1,000 ml IRR ASDIRECTED PRN PRN Reason: delivery Terbutaline Sulfate (Brethine) 0.25 mg SUBCUT ASDIRECTED PRN PRN Reason: Tacysystole Discontinued Medications Ephedrine Sulfate (Ephedrine Sulfate) Confirm Administered Dose 100 mg .ROUTE .STK-MED ONE Stop: 02/01/20 10:30 Fentanyl (Sublimaze) Confirm Administered Dose 100 mcg .ROUTE .STK-MED ONE Stop: 02/01/20 09:54 Ropivacaine (Naropin 0.2%) Confirm Administered Dose 100 mls @ as directed .ROUTE .STK-MED ONE Stop: 02/01/20 09:54 Sodium Chloride (Normal Saline) Confirm Administered Dose 20 mls @ as directed .ROUTE .STK-MED ONE Stop: 02/01/20 10:30 Ropivacaine (Naropin 0.2%) Confirm Administered Dose 20 ml .ROUTE .STK-MED ONE Stop: 02/01/20 09:54 - Exam General: Alert, Oriented, Cooperative, No Acute Distress HEENT: Pupils Equal, Pupils Reactive, Mucous Membr. Moist/[place] Neck: Supple Lungs: Clear to Auscultation, Normal Respiratory Effort Cardiovascular: Regular Rate, Regular Rhythm GI/Abdominal Exam: Normal Bowel Sounds, Soft, Non-Tender, No Organomegaly, No Distention, Other (Female) Exam: Normal External Exam, Enlarged Uterus ( uterus, firm U-1. ), Vaginal Bleeding (Scant rubra lochia) Back Exam: Normal Inspection, Full Range of Motion Extremities: Normal Inspection, Normal Range of Motion, Non-Tender, No Pedal Edema, Normal Capillary Refill Skin: Warm, Dry, Intact Neurological: No New Focal Deficit (Epidural analgesia) Psy/Mental Status: Alert, Normal Affect, Normal Mood - Problem List & Annotations (1) Supervision of normal IUP (intrauterine ) in multigravida SNOMED Code(s): 456131067, 806398178, 461379451 Code(s): Z34.80 - ENCOUNTER FOR SUPRVSN OF NORMAL , UNSP TRIMESTER Status: Acute Priority: High Current Visit: Yes Qualifiers: Trimester: third trimester Qualified Code(s): Z34.83 - Encounter for supervision of other normal , third trimester (2) 37 or more weeks gestation of SNOMED Code(s): 65322012 Code(s): MUJ9725 - Status: Acute Priority: High Current Visit: Yes - Problem List Review Problem List Initiated/Reviewed/Updated: Yes - My Orders Last 24 Hours: My Active Orders 02/01/20 11:32 Bedrest Bathroom Privileges [RC] ASDIRECTED Communication Order [RC] ASDIRECTED Communication Order [RC] ASDIRECTED Notify Provider [RC] PRN Notify Provider [RC] PRN Notify Provider [RC] STAT Terbutaline [Brethine] 0.25 mg SUBCUT ASDIRECTED PRN miSOPROStoL [Cytotec] 25 mcg VAG ONETIME PRN 02/01/20 11:45 Oxytocin/0.9 % Sodium Chloride [Oxytocin 30 Unit/500 ML-NS] 30 unit in 500 ml IV TITRATE Medication Administration Instruction [OM.PC] Q3H - Plan Plan:: Admit inpatient to unit S/P uncomplicated of term NBM. See new orders. Plans to bottle feed. Dr. Farah notified and agreeable with POC.
[2020-02-01] MEDS ORDERED: Witch Hazel Medicated Pads 40/Jar TOP PRN (13:06)
[2020-02-01] MEDS ORDERED: Lanolin 100% Cream 7 GM Tube TOP PRN (13:06)
[2020-02-01] MEDS ORDERED: Acetaminophen 500 MG Tab PO PRN ×2 (13:06)
[2020-02-01] MEDS ORDERED: oxyCODONE 5 MG Tab PO PRN (13:06)
[2020-02-01] MEDS ORDERED: Benzocaine/Menthol 20%-0.5% Spray 78 GM Cannister TOP PRN (13:06)
[2020-02-01] MEDS ORDERED: Docusate Sodium 100 MG Cap PO PRN (13:06)
[2020-02-01] MEDS ORDERED: Bisacodyl 10 MG Supp RECTAL PRN (13:06)
[2020-02-01] MEDS ORDERED: Ibuprofen 400 MG Tab PO PRN (13:06)
--- NOTE | 2020-02-01 13:46 | PCM48HPAN ---
Post Anesthesia Note - EVALUATION WITHIN 48HRS OF ANESTHETIC Vital Signs in Normal Range: Yes Patient Participated in Evaluation: Yes Respiratory Function Stable: Yes Airway Patent: Yes Cardiovascular Function Stable: Yes Hydration Status Stable: Yes Pain Control Satisfactory: Yes Nausea and Vomiting Control Satisfactory: Yes Mental Status Recovered: Yes - COMMENTS/OBSERVATIONS Free Text/Narrative:: Doing well. No problems noted.
--- NOTE | 2020-02-01 14:35 | PCM.SN.2 ---
- Free Text/Narrative Note: Visited earlier, no complaints. Now complaining of body itching. Instructed nurse it should pass in near future. If not Nubain 2.5 mg ordered IV.
[2020-02-01] MEDS: Ibuprofen 800 MG Tab PO PRN (20:44)
[2020-02-02] MEDS: Ibuprofen 800 MG Tab PO PRN (07:57)
--- NOTE | 2020-02-02 08:02 | PCM.DCSUM1 ---
Discharge Summary - Hospital Course Free Text/Narrative:: Discharge home with infant. Follow up in 6 weeks for . Take OTC Motrin for cramping and Iron for anemia. Diagnosis: Stroke: No Modified Lila Scale: No Symptoms at All Modified Lila Scale Score: 0 - Discharge Data Discharge Date: 02/02/20 Discharge Disposition: Home, Self-Care 01 Condition: Good - Referral to Home Health Primary Care Physician: PCP None - Discharge Diagnosis/Problem(s) (1) Supervision of normal IUP (intrauterine ) in multigravida SNOMED Code(s): 245570117, 466028155, [id number] ICD Code: Z34.80 - ENCOUNTER FOR SUPRVSN OF NORMAL , UNSP TRIMESTER Status: Acute Priority: High Current Visit: Yes Qualifiers: Trimester: third trimester Qualified Code(s): Z34.83 - Encounter for supervision of other normal , third trimester (2) (normal spontaneous vaginal delivery) SNOMED Code(s): 84588101, 118837574 ICD Code: O80 - ENCOUNTER FOR FULL-TERM UNCOMPLICATED DELIVERY Status: Acute Priority: High Current Visit: No - Patient Instructions Diet: Usual Diet as Tolerated Activity: As Tolerated, No Strenuous Activities, Rest and Relax Today Driving: May Drive Today Showering/Bathing: May Shower Notify Provider of: Fever, Increased Pain, Swelling and Redness, Nausea and/or Vomiting Other/Special Instructions: Discharge home with . Follow up in 6 weeks for . Take OTC Motrin for cramping and Iron for anemia. - Discharge Plan *PRESCRIPTION DRUG MONITORING PROGRAM REVIEWED*: Not Applicable *COPY OF PRESCRIPTION DRUG MONITORING REPORT IN PATIENT IRENE: Not Applicable Home Medications: Home Meds . [No Known Home Meds] 07/27/18 [History] Oxygen Therapy Mode: Room Air Referrals: [facility] [Outside] Imani Guzman CNM [Mid-] - 03/14/20 1:00 pm - Discharge Summary/Plan Comment DC Time >30 min.: Yes - General Info Date of Service: 02/02/20 Admission Dx/Problem (Free Text: Patient Status Order with Admit Dx/Problem 02/01/20 08:20 Patient Status [ADT] Routine Admission Diagnosis/Problem Admission Diagnosis/Problem 02/01/20 09:16 Yue is a 28 yo at 37.5 weeks (EDD02[birth year]17/2020) that presents today with C/O contractions since 1 am that have worsened, sharp, 7/10, intermittent, able to breathe through but not talk during contractions. AB pos, RI, GBS neg. Hx of uncomplicated x 4, proven pelvis to 6 lb 15 oz, umbilical hernia, severe anxiety with panic, restless leg, depression. Patient reports she desires epidural. Patient denies any other complaints or concerns at this time, resting calm and comfortable in bed between contractions. Functional Status: Reports: Pain Controlled, Tolerating Diet, Ambulating, Urinating - Review of Systems General: Reports: No Symptoms HEENT: Reports: No Symptoms Pulmonary: Reports: No Symptoms Cardiovascular: Reports: No Symptoms Gastrointestinal: Reports: No Symptoms Genitourinary: Reports: No Symptoms Musculoskeletal: Reports: No Symptoms Skin: Reports: No Symptoms Neurological: Reports: No Symptoms Psychiatric: Reports: No Symptoms - Patient Data Vitals - Most Recent: Last Vital Signs Temp 36.6 C 02/02/20 04:28 Pulse 67 02/02/20 04:28 Resp 16 02/02/20 04:28 BP 105/57 L 02/02/20 04:28 Pulse Ox 95 02/02/20 04:28 Weight - Most Recent: 68.039 kg Lab Results - Last 24 hrs: Laboratory Results - last 24 hr 02/01/20 02/01/20 02/01/20 Range/Units 09:05 09:05 09:08 WBC 11.98 H (4.0-11.0) K/uL RBC 3.61 L (4.30-5.90) M/uL Hgb 9.8 L (12.0-16.0) g/dL Hct 31.6 L (36.0-46.0) % MCV 87.5 (80.0-98.0) fL MCH 27.1 (27.0-32.0) pg MCHC 31.0 (31.0-37.0) g/dL RDW Std Deviation 47.5 (28.0-62.0) fl RDW Coeff of Lorri 15 (11.0-15.0) % Plt Count 310 (150-400) K/uL MPV 11.20 (7.40-12.00) fL Nucleated RBC % 0.0 /100WBC Nucleated RBCs # 0 K/uL COVID-19 (FROY) NEGATIVE (NEGATIVE) Blood Type AB POSITIVE Antibody Screen NEGATIVE 02/02/20 Range/Units 05:42 WBC (4.0-11.0) K/uL RBC (4.30-5.90) M/uL Hgb 7.8 L (12.0-16.0) g/dL Hct 24.6 L (36.0-46.0) % MCV (80.0-98.0) fL MCH (27.0-32.0) pg MCHC (31.0-37.0) g/dL RDW Std Deviation (28.0-62.0) fl RDW Coeff of Lorri (11.0-15.0) % Plt Count (150-400) K/uL MPV (7.40-12.00) fL Nucleated RBC % /100WBC Nucleated RBCs # K/uL COVID-19 (FROY) (NEGATIVE) Blood Type Antibody Screen Med Orders - Current: Current Medications Acetaminophen (Tylenol Extra Strength) 500 mg PO Q4H PRN PRN Reason: Pain Acetaminophen (Tylenol Extra Strength) 1,000 mg PO Q4H PRN PRN Reason: Pain Benzocaine/Menthol (Dermoplast Pain Relief 20%-0.5% Steens) 78 gm TOP ASDIRECTED PRN PRN Reason: Perineal Comfort Measure Bisacodyl (Dulcolax) 10 mg RECTAL ONETIME PRN PRN Reason: Constipation Docusate Sodium (Colace) 100 mg PO BID PRN PRN Reason: Constipation Last Admin: 02/02/20 07:56 Dose: 100 mg Documented by: Emollient Ointment (Lansinoh Hpa) 0 gm TOP ASDIRECTED PRN PRN Reason: Sore Nipples Ibuprofen (Motrin) 400 mg PO Q4H PRN PRN Reason: Pain Ibuprofen (Motrin) 800 mg PO Q6H PRN PRN Reason: Pain Last Admin: 02/02/20 07:57 Dose: 800 mg Documented by: Oxycodone HCl (Oxycodone) 5 mg PO Q2H PRN PRN Reason: Pain Witch Areli (Tucks) 1 pad TOP ASDIRECTED PRN PRN Reason: comfort care Discontinued Medications Butorphanol Tartrate (Stadol) 1 mg IVPUSH Q1H PRN PRN Reason: Pain Carboprost Tromethamine (Hemabate Ds) 250 mcg IM ASDIRECTED PRN PRN Reason: Post Hemorrhage Ephedrine Sulfate (Ephedrine Sulfate) Confirm Administered Dose 100 mg .ROUTE .ST-MED ONE Stop: 02/01/20 10:30 Fentanyl (Sublimaze) Confirm Administered Dose 100 mcg .ROUTE .ST-MED ONE Stop: 02/01/20 09:54 Last Admin: 02/01/20 21:44 Dose: Not Given Documented by: Oxytocin/Sodium Chloride (Oxytocin 30 Unit/500 Ml-Ns) 30 unit in 500 mls @ 500 mls/hr IV TITRATE MONALISA Tranexamic Acid 1,000 mg/ (Sodium Chloride) 110 mls @ 660 mls/hr IV ONETIME PRN PRN Reason: Bleeding Lactated Ringer's (Ringers, Lactated) 1,000 mls @ 150 mls/hr IV ASDIRECTED MONALISA Last Admin: 02/01/20 10:03 Dose: 999 mls/hr Documented by: Ropivacaine (Naropin 0.2%) Confirm Administered Dose 100 mls @ as directed .ROUTE .[facility]-MED ONE Stop: 02/01/20 09:54 Sodium Chloride (Normal Saline) Confirm Administered Dose 20 mls @ as directed .ROUTE .[facility]-MED ONE Stop: 02/01/20 10:30 Oxytocin/Sodium Chloride (Oxytocin 30 Unit/500 Ml-Ns) 30 unit in 500 mls @ 2 mls/hr IV TITRATE MONALISA; Protocol Last Titration: 02/01/20 12:33 Dose: 500 munits/min, 500 mls/hr Documented by: Lidocaine HCl (Xylocaine 1%) 50 ml INJECT ONETIME PRN PRN Reason: Laceration repair Methylergonovine Maleate (Methergine) 0.2 mg IM ASDIRECTED PRN PRN Reason: Post Hemorrhage Misoprostol (Cytotec) 200 mcg PO ONETIME PRN PRN Reason: Post Hemorrhage Misoprostol (Cytotec) 25 mcg VAG ONETIME PRN PRN Reason: Cervical Ripening Nalbuphine HCl (Nubain) 10 mg IVPUSH Q1H PRN PRN Reason: Pain (severe 7-10) Ondansetron HCl (Zofran) 4 mg IVPUSH Q4H PRN PRN Reason: Nausea/Vomiting Ropivacaine (Naropin 0.2%) Confirm Administered Dose 20 ml .ROUTE .[facility] ONE Stop: 02/01/20 09:54 Last Admin: 02/01/20 21:44 Dose: Not Given Documented by: Sodium Chloride (Saline Flush) 10 ml FLUSH ASDIRECTED PRN PRN Reason: Keep Vein Open Sodium Chloride (Saline Flush) 2.5 ml FLUSH ASDIRECTED PRN PRN Reason: Keep Vein Open Sodium Chloride (Normal Saline) 10 ml IV ASDIRECTED PRN PRN Reason: IV Use Sterile Water (Sterile Water For Irrigation) 1,000 ml IRR ASDIRECTED PRN PRN Reason: delivery Terbutaline Sulfate (Brethine) 0.25 mg SUBCUT ASDIRECTED PRN PRN Reason: Tacysystole - Exam General: Reports: Alert, Oriented, Cooperative, No Acute Distress Lungs: Reports: Normal Respiratory Effort GI/Abdominal Exam: Soft, Pelvis Stable (Female) Exam: Deferred, Vaginal Bleeding. No: Vaginal Lesions, Vaginal Tears Rectal (Female) Exam: Deferred Back Exam: Reports: Normal Inspection, Full Range of Motion Extremities: Normal Range of Motion, Non-Tender, No Pedal Edema Skin: Reports: Warm, Dry, Intact Wound/Incisions: Reports: Healing Well Neurological: Reports: No New Focal Deficit, Normal Speech, Normal Tone, Strength Equal Bilateral, Sensation Intact Psy/Mental Status: Reports: Alert, Normal Affect, Normal Mood
[2020-02-02 08:58] VITALS: BP 110/73; PULSE 56
== END 2020-02-02 16:50 | disposition home or self-care (01) | DRG 807 ==
LOC: MW.OBCHECK 08:31 → MW.OB 08:32 → MW.OBCHECK 08:45 → MW.OB 08:46 → OBSVTOIN 12:30 → MW.OB 15:21
PROVIDERS: ADMIT Obstetrics & Gynecology; ATTEND Obstetrics & Gynecology
PROC: 10E0XZZ Delivery of Products of Conception, External Approach (ICD-10-PCS; principal; 2020-02-01)
PROC: 3E0R3BZ Introduction of Anesthetic Agent into Spinal Canal, Percutaneous Approach (ICD-10-PCS; 2020-02-01)
PROC: 00HU33Z Insertion of Infusion Device into Spinal Canal, Percutaneous Approach (ICD-10-PCS; 2020-02-01)
DX: O80 Encounter for full-term uncomplicated delivery (principal); Z37.0 Single live birth; Z3A.37 37 weeks gestation of pregnancy; Z20.828 Contact with and (suspected) exposure to other viral communicable diseases
CPT/HCPCS: 01967; 36415; 51702; 59025; 59409; 85014; 85018; 85027; 86592; 86850; 86900; 86901; A9270-GY; J2590; J7120; U0002

== ENCOUNTER 2022-01-23 19:25 | Emergency (ER) | payer MEDICAID ==
[2022-01-23] MEDS ORDERED: Ketorolac 60 MG/2 ML SDV IM ONE (19:47)
[2022-01-23] MEDS ORDERED: Ondansetron 4 MG Tab.DIS PO ONE (19:47)
[2022-01-23 20:47] VITALS: BP 122/72; PULSE 82
== END 2022-01-23 20:54 | disposition home or self-care (01) ==
LOC: MW.ED 19:25
DX: B34.9 Viral infection, unspecified (principal); Z88.1 Allergy status to other antibiotic agents; Z20.822 Contact with and (suspected) exposure to COVID-19
CPT/HCPCS: 87635; 96372; 99283; A9270; J1885; U0002

== ENCOUNTER 2023-12-18 11:00 | Emergency (ER) | payer SELFPAY ==
[2023-12-18] MEDS: Sodium Chloride 0.9% 1,000 ML IV ONE (11:36)
[2023-12-18] MEDS: Ondansetron 4 MG/2 ML SDV IVPUSH ONE (11:37)
[2023-12-18] MEDS: Morphine 4 MG/ML Syringe IVPUSH ONE (11:39)
[2023-12-18 11:46] LABS: BASOPHILS ABSOLUTE AUTO 0.06 K/uL (0.00-0.20); BASOPHILS PERCENT AUTO 0.9 % (0.0-1.0); EOSINOPHILS ABSOLUTE AUTO 0.04 K/uL (0.00-0.45); EOSINOPHILS PERCENT AUTO 0.6 % (0.0-6.0); HEMOGLOBIN 13.8 g/dL (12.0-16.0); IMMATURE GRAN ABSOLUTE AUTO 0.01 K/uL (0.00-0.05); IMMATURE GRAN PERCENT AUTO 0.2 % (0.0-0.4); LYMPHOCYTES PERCENT AUTO 19.8 % (24.0-44.0); MEAN CORPUSCULAR HEMOGLOBIN 31.7 pg (28.0-32.0); MEAN CORPUSCULAR HGB CONC 33.7 g/dL (32.0-36.0); MEAN PLATELET VOLUME 10.4 fL (9.4-12.3); MONOCYTES ABSOLUTE AUTO 0.49 K/uL (0.00-0.80); MONOCYTES PERCENT AUTO 7.4 % (0.0-8.0); NEUTROPHILS ABSOLUTE AUTO 4.68 K/uL (1.80-7.70); NEUTROPHILS PERCENT AUTO 71.1 % (41.0-71.0); PLATELET COUNT,PLT 248 K/uL (150-400); RED BLOOD CELL COUNT 4.36 M/uL (4.10-5.30); WHITE BLOOD CELL COUNT,WBC 6.58 K/uL (3.9-11.3)
[2023-12-18 12:17] LABS: A/G RATIO 1.1 (0.9-1.6); ALBUMIN 3.7 g/dL (3.4-5.0); BILIRUBIN TOTAL 0.4 mg/dL (0.2-1.0); CALCIUM 8.5 mg/dL (8.5-10.1); CARBON DIOXIDE,CO2 26.8 mmol/L (21.0-32.0); CREATININE 1.1 mg/dL (0.6-1.0); EST CRCL DRUG DOSING (CG) 52.25 mL/min; POTASSIUM,K 3.7 mmol/L (3.5-5.1); PROTEIN TOTAL,TP 7.1 g/dL (6.4-8.2)
[2023-12-18 12:24] LABS: APPEARANCE,URINE SLT CLOUDY; BILIRUBIN,URINE NEGATIVE (NEGATIVE); COLOR,URINE YELLOW; GLUCOSE,URINE NEGATIVE (NEGATIVE); KETONES,URINE NEGATIVE (NEGATIVE); LEUKOCYTE ESTERASE,URINE LARGE (NEGATIVE); NITRITE,URINE NEGATIVE (NEGATIVE); OCCULT BLOOD,URINE NEGATIVE (NEGATIVE); PROTEIN,URINE NEGATIVE (NEGATIVE); UROBILINOGEN,URINE 0.2 EU/dL (<2.0)
[2023-12-18 12:34] LABS: CALCIUM OXALATE CRYSTALS,URINE MODERATE (NEGATIVE); EPITHELIAL CELLS,URINE MANY (NONE-FEW)
[2023-12-18 12:35] LABS: BACTERIA,URINE 2+ (NEGATIVE); RBC,URINE 0-2 (0-2/HPF)
[2023-12-22 03:42] VITALS: BP 112/76; PULSE 86
== END 2023-12-18 13:40 ==
LOC: MW.ED 11:00
DX: N39.0 Urinary tract infection, site not specified (principal); Z79.899 Other long term (current) drug therapy; Z88.1 Allergy status to other antibiotic agents; Z75.8 Other problems related to medical facilities and other health care
CPT/HCPCS: 36415; 80053; 81001; 83690; 84703; 85025; 87086; 87088; 87186; 96361; 96374; 96375; 99284; J2270; J2405; J7030; 99283

== ENCOUNTER 2024-08-21 08:22 | Emergency (ER) | payer MEDICAID ==
[2024-08-21] MEDS ORDERED: Sodium Chloride 0.9% 10 ML Syringe FLUSH PRN (09:03)
[2024-08-21] MEDS ORDERED: Sodium Chloride 0.9% 2.5 ML Syringe FLUSH PRN (09:03)
[2024-08-21] MEDS ORDERED: Sodium Chloride 0.9% 20 ML SDV IV PRN (09:03)
[2024-08-21] MEDS: diphenhydrAMINE 50 MG/ML SDV IVPUSH ONE (09:27)
[2024-08-21] MEDS: Ketorolac 30 MG/ML SDV IVPUSH ONE (09:28)
[2024-08-21] MEDS: Proparacaine 0.5% Ophth Soln 15 ML Bottle EYEBOTH ONE (09:28)
[2024-08-21] MEDS: Metoclopramide 10 MG/2 ML SDV IVPUSH ONE (09:28)
[2024-08-21] MEDS: Sodium Chloride 0.9% 500 ML IV SCH (09:29)
[2024-08-21 09:36] LABS: BASOPHILS ABSOLUTE AUTO 0.05 K/uL (0.00-0.20); BASOPHILS PERCENT AUTO 0.8 % (0.0-1.0); EOSINOPHILS PERCENT AUTO 1.6 % (0.0-6.0); HEMOGLOBIN 15.2 g/dL (12.0-16.0); IMMATURE GRAN ABSOLUTE AUTO 0.01 K/uL (0.00-0.05); IMMATURE GRAN PERCENT AUTO 0.2 % (0.0-0.4); LYMPHOCYTES ABSOLUTE AUTO 1.06 K/uL (1.00-4.80); LYMPHOCYTES PERCENT AUTO 16.5 % (24.0-44.0); MEAN CORPUSCULAR HEMOGLOBIN 31.3 pg (28.0-32.0); MEAN CORPUSCULAR HGB CONC 33.8 g/dL (32.0-36.0); MEAN CORPUSCULAR VOLUME 92.8 fL (83.0-99.0); MEAN PLATELET VOLUME 10.4 fL (9.4-12.3); MONOCYTES ABSOLUTE AUTO 0.56 K/uL (0.00-0.80); MONOCYTES PERCENT AUTO 8.7 % (0.0-8.0); NEUTROPHILS ABSOLUTE AUTO 4.66 K/uL (1.80-7.70); NEUTROPHILS PERCENT AUTO 72.2 % (41.0-71.0); PLATELET COUNT,PLT 255 K/uL (150-400); RED BLOOD CELL COUNT 4.85 M/uL (4.10-5.30); WHITE BLOOD CELL COUNT,WBC 6.44 K/uL (3.9-11.3)
[2024-08-21 09:39] VITALS: BP 114/85; PULSE 81
[2024-08-21 09:49] LABS: A/G RATIO 1.1 (0.9-1.6); ALBUMIN 4.1 g/dL (3.4-5.0); BILIRUBIN TOTAL 1.1 mg/dL (0.2-1.0); CALCIUM 8.8 mg/dL (8.5-10.1); CARBON DIOXIDE,CO2 23.5 mmol/L (21.0-32.0); CREATININE 0.9 mg/dL (0.6-1.0); EST CRCL DRUG DOSING (CG) 63.86 mL/min; PROTEIN TOTAL,TP 7.9 g/dL (6.4-8.2)
[2024-08-21 11:54] LABS: APPEARANCE,URINE CLEAR; BILIRUBIN,URINE NEGATIVE (NEGATIVE); COLOR,URINE YELLOW; GLUCOSE,URINE NEGATIVE (NEGATIVE); KETONES,URINE NEGATIVE (NEGATIVE); LEUKOCYTE ESTERASE,URINE NEGATIVE (NEGATIVE); NITRITE,URINE NEGATIVE (NEGATIVE); OCCULT BLOOD,URINE MODERATE (NEGATIVE); PH,URINE 5.5 (5.0-8.0); PROTEIN,URINE NEGATIVE (NEGATIVE); UROBILINOGEN,URINE 0.2 EU/dL (<2.0)
[2024-08-21 11:55] LABS: BACTERIA,URINE FEW (NEGATIVE); EPITHELIAL CELLS,URINE FEW (NONE-FEW); MUCUS,URINE LIGHT (NONE-MOD); RBC,URINE 13-16 (0-2/HPF); WBC,URINE 0-2 (0-5/HPF)
[2024-08-21 12:07] LABS: AMPHETAMINES SCREEN, URINE NEGATIVE (CUTOFF=500); BARBITURATE SCREEN,URINE NEGATIVE (CUTOFF=200); BENZODIAZEPINES SCREEN,URINE NEGATIVE (CUTOFF=150); BUPRENORPHINE SCREEN,URINE NEGATIVE (CUTOFF=10); METHADONE SCREEN, URINE NEGATIVE (CUTOFF=200); METHAMPHETAMINES SCREEN, URINE NEGATIVE (CUTOFF=500); OXYCODONE SCREEN,URINE NEGATIVE (CUT0FF=100); PCP SCREEN,URINE NEGATIVE (CUTOFF=25); THC SCREEN,URINE 20 NG/ML PRESUMPTIVE POSITIVE (CUTOFF=50)
[2024-08-21] MEDS: Acetaminophen 500 MG Tab PO ONE (13:06)
== END 2024-08-21 13:44 | disposition home or self-care (01) ==
LOC: MW.ED 08:22
DX: G43.909 Migraine, unspecified, not intractable, without status migrainosus (principal); Z88.1 Allergy status to other antibiotic agents
CPT/HCPCS: 36415; 80053; 80305; 81001; 84703; 85025; 96361; 96374; 96375; 99283; A9270; J1200; J1885; J2765; J7040; 99284; J3490

== ENCOUNTER 2025-03-07 09:25 | Emergency (ER) | payer MEDICAID ==
[2025-03-07] MEDS ORDERED: Sodium Chloride 0.9% 10 ML Syringe FLUSH PRN (09:28)
[2025-03-07] MEDS ORDERED: Sodium Chloride 0.9% 2.5 ML Syringe FLUSH PRN (09:28)
[2025-03-07] MEDS: Ketorolac 30 MG/ML SDV IVPUSH ONE (09:57)
[2025-03-07 10:11] LABS: BASOPHILS ABSOLUTE AUTO 0.03 K/uL (0.00-0.20); BASOPHILS PERCENT AUTO 0.3 % (0.0-1.0); EOSINOPHILS ABSOLUTE AUTO 0.05 K/uL (0.00-0.45); EOSINOPHILS PERCENT AUTO 0.5 % (0.0-6.0); IMMATURE GRAN ABSOLUTE AUTO 0.03 K/uL (0.00-0.05); IMMATURE GRAN PERCENT AUTO 0.3 % (0.0-0.4); LYMPHOCYTES ABSOLUTE AUTO 1.43 K/uL (1.00-4.80); LYMPHOCYTES PERCENT AUTO 15.7 % (24.0-44.0); MEAN PLATELET VOLUME 10.6 fL (9.4-12.3); MONOCYTES ABSOLUTE AUTO 0.97 K/uL (0.00-0.80); MONOCYTES PERCENT AUTO 10.6 % (0.0-8.0); NEUTROPHILS ABSOLUTE AUTO 6.61 K/uL (1.80-7.70); NEUTROPHILS PERCENT AUTO 72.6 % (41.0-71.0); NRBC ABSOLUTE 0.00 K/uL (0.00-0.02); NRBC PERCENT 0.0 /100WBC (0.0-0.2); PLATELET COUNT,PLT 294 K/uL (150-400); RED BLOOD CELL COUNT 4.54 M/uL (4.10-5.30); WHITE BLOOD CELL COUNT,WBC 9.12 K/uL (3.9-11.3)
[2025-03-07 11:57] LABS: A/G RATIO 0.8 (0.9-1.6); ALANINE AMINOTRANSFERASE,ALT 17.0 IU/L (14-63); ASPARTATE AMNIOTRANSFERASE,AST 27.0 IU/L (15-37); BILIRUBIN TOTAL 0.6 mg/dL (0.2-1.0); BLOOD UREA NITROGEN,BUN 9.0 mg/dL (7.0-18.0); CARBON DIOXIDE,CO2 28.6 mmol/L (21.0-32.0); CHLORIDE,CL 103.0 mmol/L (98-107); CREATININE 0.8 mg/dL (0.6-1.0); EST CRCL DRUG DOSING (CG) 71.17 mL/min; GLUCOSE RANDOM 100.0 mg/dL (74-106); POTASSIUM,K 3.6 mmol/L (3.5-5.1); PROTEIN TOTAL,TP 8.5 g/dL (6.4-8.2); SODIUM,NA 142.0 mmol/L (136-145)
[2025-03-07 12:02] LABS: ESTIMATED GFR 99.0 mL/min (>60)
[2025-03-07 12:19] VITALS: BP 124/75; PULSE 75
== END 2025-03-07 12:47 | disposition home or self-care (01) ==
LOC: MW.ED 09:25
DX: G44.209 Tension-type headache, unspecified, not intractable (principal); M54.2 Cervicalgia; Z88.8 Allergy status to other drugs, medicaments and biological substances; Z87.39 Personal history of other diseases of the musculoskeletal system and connective tissue
CPT/HCPCS: 36415; 80053; 84703; 85025; 85652; 86140; 96374; 99284; A9270; J1885; 99283